=== PATIENT | female | born 2005 | race Caucasian/White ===

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

== ENCOUNTER 2024-02-24 13:09 | Emergency (ER) | payer OTHER, MEDICAID, SELFPAY ==
[2024-02-24 13:22] VITALS: BP 94/57; PULSE 81; RESP 17; TEMP 36.8; O2SAT 99
--- NOTE | 2024-02-24 13:57 | W.ED.PREGNAN ---
HPI - General: Chief complaint: OB/Uterine Contractions Stated complaint: cramps/vag bleeding (19wks preg) Time Seen by Provider: 02/24/24 13:52 Source: patient Mode of arrival: ambulatory Limitations: no limitations History of Present Illness: 18-year-old female who is currently 19 weeks states she has had some slight cramping in bleeding. 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 Associated symptoms: Reports abdominal pain; Deny headache(s), nausea or vomiting Review of Systems Const: Denies: fever(s), chills, body aches or change in appetite ENMT: Denies: throat pain or dental pain Card: Denies: chest pain Resp: Denies: dyspnea GI: Reports: abdominal pain; Denies: nausea, vomiting or diarrhea : Reports: vaginal bleeding Musc: Denies: neck pain or back pain Skin/Breast: Denies: rash Neuro: Denies: headache(s) PFSH ED PFSH: Medical History Migraine without aura Anxiety and depression No pertinent past medical history neghx: htn,dm,thyroid,dvt/pe PCP: [facility] Allergic rhinitis due to allergen Psychiatric care Surgical History History of tonsillectomy and adenoidectomy as a child History of placement of ear tubes as a child Family History Grandfather Diabetes Maternal Hypertension Maternal Denies family history of Colon cancer Ovarian cancer Heart disease Hypercholesteremia Breast cancer Uterine cancer Thyroid disease Stroke Physical Exam Const: COMMON NORMALS: no acute distress, patient oriented x3 and healthy appearing HENMT: COMMON NORMALS: normocephalic and atraumatic HEAD & SCALP: normocephalic and atraumatic Eye: COMMON NORMALS: conjunctivae normal CONJUNCTIVA: Yes conjunctivae normal Neck/C-Spine: COMMON NORMALS: full ROM and supple Chest: COMMONS NORMALS: normal inspection of the chest Resp: COMMON NORMALS: normal respiratory effort Cardio: COMMON NORMALS: regular rate RATE: regular rate GI: COMMON NORMALS: Normal to inspection, nondistended, normoactive bowel sounds present, Soft to palpation, non-tender and no masses PALPATION: Yes Soft to palpation : OTHER: Cervical os is closed no blood in vaginal vault Extremity: COMMON NORMALS: normal to inspection and full ROM Neuro: COMMON NORMALS: patient oriented x3, moves all extremities and no focal motor deficits Psych: COMMON NORMALS: mental status grossly normal, Normal thought process present and cooperative THOUGHT PROCESS: Normal thought process present Skin: COMMON NORMALS: no rashes or lesions noted and no wounds GENERAL SKIN EXAM: no rashes or lesions noted Course Vital Signs: Vital signs: Vital Signs Temperature 98.2 F 02/24/24 13:22 Pulse Rate 80 02/24/24 14:29 Respiratory Rate 16 02/24/24 14:29 Blood Pressure 100/81 02/24/24 14:29 Pulse Oximetry 99 02/24/24 14:29 Oxygen Delivery Me thod Room Air 02/24/24 14:29 MDM - OB/Uterine Contractions Medical Decision Making Patient presents here with threatened miscarriage she had no bleeding here bedside ultrasound showed fetus consistent with dates heart rate 152 she is Rh- we will give her RhoGAM she is to follow-up with OB return if worsening she understands agrees to plan. Medical Records I reviewed the patient's medical records. Lab Data I reviewed the patient's lab results. Laboratory Results Urine Color Straw (Yellow) 02/24/24 14:29 Urine Appearance Clear (CLEAR) 02/24/24 14:29 Urine pH 8 (5-7) H 02/24/24 14:29 Ur Specific [place] 1.010 (1.005-1.030) 02/24/24 14:29 Urine Protein Neg (Negative) 02/24/24 14:29 Urine Glucose (UA) Norm (Normal) 02/24/24 14:29 Urine Ketones Negative (Negative) 02/24/24 14:29 Urine Blood Neg (Negative) 02/24/24 14:29 Urine Nitrate Negative (Negative) 02/24/24 14:29 Urine Bilirubin Neg (Negative) 02/24/24 14:29 Prot Sulfosalicylic Acd Negative (Negative) 02/24/24 14:29 Urine Urobilinogen Norm mg/dL (Negative) 02/24/24 14:29 Ur Leukocyte Esterase Negative (Negative) 02/24/24 14:29 Blood Type O Negative 02/24/24 14:20 Rho(D) Type Rh negative 02/24/24 14:20 No radiology studies performed this visit Discharge Plan Discharge Patient Disposition: Home Clinical Impression: Threatened miscarriage Condition: Stable Prescriptions: No Action fluticasone propionate 50 mcg/actuation spray,suspension 2 spray intranasal BID PRN (Reason: allergy symptoms) Qty: 16 1RF Rx Instructions: administer into each nostril Alive Daily Support 180 mcg-25 mg- 25 mg tablet,chewable 1 tab PO DAILY albuterol sulfate [ProAir HFA] 90 mcg/actuation HFA aerosol inhaler 2 puff INHALATION Q4H PRN (Reason: Shortness Of Breath) sertraline 25 mg tablet 25 mg PO DAILY Discharge Orders: Discharge ED (Routine); Ordered 02/24/24 Ordered By: Etienne Tapia Referrals: Natalie Boudreaux DO [Primary Care Provider] - 4-7 days Discharge Diet: Advance as tolerated Discharge Activity: Resume usual activity Patient Instructions: Threatened Miscarriage (ED) Coding Level of Care Code ED Operating Systems Programmer for Hollie Magdaleno
[2024-02-24 14:29] VITALS: BP 100/81; PULSE 80; RESP 16; O2SAT 99
[2024-02-24 14:32] LABS: Add Urine Microscopic? NO; Charge for UA Resulting for Rev
[2024-02-24 14:47] LABS: Urine Color Straw (Yellow)
[2024-02-24 14:48] LABS: Bilirubin Urine Neg (Negative); Blood Urine Neg (Negative); Glucose Urine UA Norm (Normal); Ketones Urine Negative (Negative); Leukocyte Esterase Urine Negative (Negative); Nitrate Urine Negative (Negative); Protein Urine Neg (Negative); Sulfosalicylic Acid Urine Negative (Negative); Urine Appearance Clear (CLEAR); Urobilinogen Urine Norm (Negative); pH Urine 8 (5-7)
[2024-02-24 15:54] VITALS: BP 101/38; PULSE 78; RESP 18; TEMP 36.9; O2SAT 100
[2024-02-24 16:03] VITALS: BP 105/65; PULSE 73; RESP 18; O2SAT 100
[2024-02-24 16:32] VITALS: BP 87/63; PULSE 76; RESP 16; O2SAT 100
== END 2024-02-24 16:34 | disposition home or self-care (01) ==
PROVIDERS: Emergency Provider Emergency Medicine; PCP Family Medicine
DX: O20.0 Threatened abortion (principal); Z3A.19 19 weeks gestation of pregnancy
CPT/HCPCS: 81003; 85460; 86850; 86900; 90384; 99283

== ENCOUNTER → 2024-03-04 09:28 | Outpatient (BNVA) | payer OTHER, MEDICAID, SELFPAY | PROVIDERS: PCP Family Medicine; Visit Provider Nurse Practitioner Women's Health | DX: Z34.90 Encounter for supervision of normal pregnancy, unspecified, unspecified trimester (principal) | CPT/HCPCS: 80307; 84315; 87491; 87591 ==

== ENCOUNTER → 2024-03-11 14:23 | Outpatient (BNVA) | payer OTHER, MEDICAID, SELFPAY | PROVIDERS: PCP Family Medicine; Visit Provider Obstetrics & Gynecology | DX: Z36.9 Encounter for antenatal screening, unspecified (principal) | CPT/HCPCS: 76805 ==

== ENCOUNTER 2024-03-12 02:48 | Observation (INO) | payer OTHER, MEDICAID, SELFPAY ==
[2024-03-12] VITALS (7 sets, daily range): BP systolic 95–130; BP diastolic 39–82; PULSE 80–98; RESP 14–20; TEMP 36.5–36.7; O2SAT 98–100; BMI 22.8
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
[2024-03-12 03:16] LABS: Basophils % 0.2 %; Eosinophils # 0.3 10^3/uL (0.0-0.8); Eosinophils % 1.9 %; Hematocrit 35.5 % (36-47); Lymphocytes # 2.7 10^3/uL (1.5-6.5); Mean Corpuscular HGB Conc 33.5 g/dL (30-55); Mean Corpuscular Hemoglobin 30.7 pg (27-33); Mean Corpuscular Volume 91.5 fl (85-98); Mean Platelet Volume 8.7 fL (7.4-10.4); Monocytes # 1.1 10^3/uL (0.2-0.9); Monocytes % 8.3 %; Neutrophils # 9.24 10^3/uL (1.8-8.0); Neutrophils % 69.1 %; Nucleated Red Blood Cells % 0 %; Platelet Count 386 10^3/cmm (157-399); Red Blood Count 3.88 10^6/uL (3.85-5.65); Red Cell Distribution Width 12.2 % (12.1-15.1); White Blood Count 13.38 10^3/uL (4.5-13.0)
[2024-03-12 03:25] LABS: Amphetamines Screen Urine Negative (Negative); Barbiturates Screen Urine Negative (Negative); Benzodiazepines Screen Urine Negative (Negative); Cocaine Screen Urine Negative (Negative); Opiate Screen Urine Negative (Negative); PCP Screen Urine Negative (Negative); THC Screen Urine Negative (Negative)
[2024-03-12 03:34] LABS: Alanine Aminotransferase 21 U/L (0-33); Albumin Level 3.7 g/dL (3.5-5.2); Alkaline Phosphatase 72 U/L (35-105); Anion Gap 13.7 (5-19); Aspartate Amino Transferase 18 U/L (0-32); Blood Urea Nitrogen 6 mg/dL (6-20); Calcium 9.2 mg/dL (8.5-10.5); Carbon Dioxide 26 mmol/L (22-29); Chloride 105 mmol/L (98-107); Creatinine Clr Calc Pharmacy 144.6585; Globulin 3.1 g/dL (1.3-4.6); Glomerular Filtration Rate 158.9 mL/min (90-130); Glucose 97 mg/dL (65-115); Osmolality Calculated 290 mOsm/kg (285-295); Potassium 3.7 mmol/L (3.5-5.1); Sodium 141 mmol/L (136-145); Total Bilirubin 0.2 mg/dL (0.15-1.2); Total Protein 6.8 g/dL (6.6-8.7)
[2024-03-12 03:40] LABS: Acetaminophen < 5.0 ug/mL (10-30); Alcohol Level < 10 mg/dL (0-10); Salicylate < 0.3 mg/dL (3-10)
[2024-03-12] MEDS: calcium carbonate 500 mg Chew Tablet 1000 MG PO ×2 (08:12→12:03)
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
--- NOTE | 2024-03-12 09:00 | PC.NURSE ---
Called OB this morning to ask them to do heart tones. They stated they would come down to [place] to do them for the patient this morning.
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
[2024-03-12] MEDS: sertraline 50 mg Tablet PO (14:00)
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
== END 2024-03-12 17:35 | disposition home or self-care (01) ==
LOC: ER 03:17 → NP 05:08
PROVIDERS: Admitting Provider Psychiatry & Neurology Psychiatry; Emergency Provider Emergency Medicine; PCP Family Medicine; Visit Provider Psychiatry & Neurology Psychiatry
DX: O99.342 Other mental disorders complicating pregnancy, second trimester (principal); Z3A.21 21 weeks gestation of pregnancy; R45.851 Suicidal ideations; F33.2 Major depressive disorder, recurrent severe without psychotic features
CPT/HCPCS: 36415; 80053; 80306; 80307; 85025; 97165; 99285; G0378

== ENCOUNTER → 2024-03-31 08:01 | Outpatient (BNVA) | payer OTHER, MEDICAID, SELFPAY | PROVIDERS: PCP Family Medicine; Visit Provider Nurse Practitioner Women's Health | DX: Z34.90 Encounter for supervision of normal pregnancy, unspecified, unspecified trimester (principal); N90.89 Other specified noninflammatory disorders of vulva and perineum | CPT/HCPCS: 84315; 87529 ==

== ENCOUNTER → 2024-04-21 08:09 | Outpatient (BNVA) | payer OTHER, MEDICAID, SELFPAY | PROVIDERS: PCP Family Medicine; Visit Provider Obstetrics & Gynecology | DX: Z34.90 Encounter for supervision of normal pregnancy, unspecified, unspecified trimester (principal); Z3A.24 24 weeks gestation of pregnancy | CPT/HCPCS: 82950; 84315 ==

== ENCOUNTER → 2024-04-22 10:58 | Outpatient (BNVA) | payer OTHER, MEDICAID, SELFPAY | PROVIDERS: PCP Family Medicine; Visit Provider Nurse Practitioner Family | DX: D48.5 Neoplasm of uncertain behavior of skin (principal); L81.4 Other melanin hyperpigmentation; D22.5 Melanocytic nevi of trunk | CPT/HCPCS: 11102; 99203 ==

== ENCOUNTER 2024-04-23 05:30 | Outpatient (CLI) | payer OTHER, MEDICAID, SELFPAY ==
[2024-04-23 05:57] VITALS: BP 111/60; PULSE 78
[2024-04-23 06:00] VITALS: BMI 23.4
[2024-04-23 06:12] VITALS: BP 107/59; PULSE 83
[2024-04-23 06:27] VITALS: BP 112/56; PULSE 82
[2024-04-23 06:42] VITALS: BP 109/58; PULSE 86
[2024-04-23 06:57] VITALS: BP 110/59; PULSE 83
== END 2024-04-23 07:12 | disposition home or self-care (01) ==
LOC: OPOB 05:42 → OBGYN 05:43
PROVIDERS: PCP Family Medicine; Visit Provider Obstetrics & Gynecology
DX: O26.899 Other specified pregnancy related conditions, unspecified trimester (principal); Z3A.00 Weeks of gestation of pregnancy not specified; Z91.81 History of falling
CPT/HCPCS: 99211

== ENCOUNTER → 2024-05-12 08:10 | Outpatient (BNVA) | payer OTHER, MEDICAID, SELFPAY | PROVIDERS: PCP Family Medicine; Visit Provider Obstetrics & Gynecology | DX: Z34.90 Encounter for supervision of normal pregnancy, unspecified, unspecified trimester (principal) | CPT/HCPCS: 84315; 86850 ==

== ENCOUNTER 2024-05-13 23:25 | Outpatient (CLI) | payer OTHER, MEDICAID, SELFPAY ==
[2024-05-13 23:25] VITALS: BMI 23.6
[2024-05-14 00:04] VITALS: BP 118/56; PULSE 81; TEMP 36.8
[2024-05-14 00:14] VITALS: BP 129/60; PULSE 88
[2024-05-14 00:35] VITALS: BP 129/60; PULSE 88; RESP 16; TEMP 36.8
== END 2024-05-14 00:36 | disposition home or self-care (01) ==
LOC: OPOB 23:29 → OBGYN 23:29
PROVIDERS: PCP Family Medicine; Visit Provider Obstetrics & Gynecology
DX: O36.8190 Decreased fetal movements, unspecified trimester, not applicable or unspecified (principal); Z3A.00 Weeks of gestation of pregnancy not specified
CPT/HCPCS: 59025; 99211

== ENCOUNTER 2024-05-20 19:09 | Outpatient (CLI) | payer OTHER, MEDICAID, SELFPAY ==
[2024-05-20 19:24] VITALS: BP 124/66; PULSE 86
[2024-05-20 19:27] VITALS: TEMP 36.6; TEMP 36.7; BMI 24.7
[2024-05-20 19:41] VITALS: BP 114/56; PULSE 83
== END 2024-05-20 20:07 | disposition home or self-care (01) ==
LOC: OPOB 19:13 → OBGYN 19:14
PROVIDERS: PCP Family Medicine; Visit Provider Obstetrics & Gynecology
DX: O26.899 Other specified pregnancy related conditions, unspecified trimester (principal); Z3A.00 Weeks of gestation of pregnancy not specified
CPT/HCPCS: 59025; 99211

== ENCOUNTER → 2024-05-26 08:46 | Outpatient (BNVA) | payer OTHER, MEDICAID, SELFPAY | PROVIDERS: PCP Family Medicine; Visit Provider Obstetrics & Gynecology | DX: Z34.90 Encounter for supervision of normal pregnancy, unspecified, unspecified trimester (principal); R21 Rash and other nonspecific skin eruption; L29.9 Pruritus, unspecified | CPT/HCPCS: 80053; 84315; 84550 ==

== ENCOUNTER 2024-06-04 00:47 | Outpatient (CLI) | payer OTHER, MEDICAID, SELFPAY ==
[2024-06-04 00:47] VITALS: BMI 25.0
[2024-06-04 01:02] VITALS: BP 125/70; PULSE 71
[2024-06-04 01:17] VITALS: BP 113/58; PULSE 67
[2024-06-04 01:32] VITALS: BP 103/71; PULSE 86
[2024-06-04 01:48] VITALS: RESP 16
[2024-06-04 01:55] VITALS: BP 103/71; PULSE 86; RESP 16
== END 2024-06-04 01:59 | disposition home or self-care (01) ==
LOC: OPOB 00:52 → OBGYN 00:54
PROVIDERS: PCP Family Medicine; Visit Provider Obstetrics & Gynecology
DX: O26.899 Other specified pregnancy related conditions, unspecified trimester (principal); Z3A.00 Weeks of gestation of pregnancy not specified; K92.1 Melena; R10.10 Upper abdominal pain, unspecified
CPT/HCPCS: 59025; 84315; 99211

== ENCOUNTER 2024-06-07 23:42 | Outpatient (CLI) | payer OTHER, MEDICAID, SELFPAY ==
[2024-06-07 23:47] VITALS: BP 133/64; PULSE 73
[2024-06-07 23:56] VITALS: RESP 18; TEMP 35.7; BMI 24.7
[2024-06-08] VITALS (9 sets, daily range): BP systolic 117–146; BP diastolic 60–72; PULSE 71–83; RESP 18
[2024-06-08 00:32] LABS: Bilirubin Urine Negative (Negative); Blood Urine Negative (Negative); Glucose Urine UA Negative (Normal); Ketones Urine Negative (Negative); Leukocyte Esterase Urine 1+ (Negative); Nitrate Urine Negative (Negative); Protein Urine Negative (Negative); Urine Appearance Clear (CLEAR); Urine Color Yellow (Yellow); Urobilinogen Urine 0.2 mg/dL (Negative); pH Urine 6.5 (5-7)
[2024-06-08 00:37] LABS: Bacteria Urine 1+ /hpf; Hyaline Casts Urine 1.21 /lpf; RBC Urine 0-2 /hpf (0-2)
[2024-06-08] MEDS: ceFAZolin 2,000 mg SDV 2000 MG IVP (01:28)
[2024-06-08] MEDS: lactated ringers 1,000 ML 999 ML IV (01:28)
== END 2024-06-08 02:10 | disposition home or self-care (01) ==
LOC: OPOB 23:43 → OBGYN 23:43
PROVIDERS: PCP Family Medicine; Visit Provider Obstetrics & Gynecology
DX: O26.899 Other specified pregnancy related conditions, unspecified trimester (principal); Z3A.00 Weeks of gestation of pregnancy not specified; R10.9 Unspecified abdominal pain; R42 Dizziness and giddiness
CPT/HCPCS: 59025; 81001; 99211

== ENCOUNTER → 2024-06-10 10:49 | Outpatient (BNVA) | payer OTHER, MEDICAID, SELFPAY | PROVIDERS: PCP Family Medicine; Visit Provider Obstetrics & Gynecology | DX: Z36.9 Encounter for antenatal screening, unspecified (principal) | CPT/HCPCS: 76816 ==

== ENCOUNTER 2024-06-12 13:50 | Outpatient (CLI) | payer OTHER, SELFPAY ==
[2024-06-12 14:04] VITALS: BP 121/58; PULSE 76
[2024-06-12 14:05] VITALS: BMI 25.4
[2024-06-12 14:25] VITALS: BP 117/60; PULSE 76
[2024-06-12 14:44] VITALS: BP 119/70; PULSE 76
[2024-06-12 15:10] VITALS: BP 119/70; PULSE 76; RESP 16
== END 2024-06-12 15:00 | disposition home or self-care (01) ==
LOC: OPOB 13:54 → OBGYN 14:00
PROVIDERS: PCP Family Medicine; Visit Provider Obstetrics & Gynecology
DX: O26.899 Other specified pregnancy related conditions, unspecified trimester (principal); Z3A.00 Weeks of gestation of pregnancy not specified; R10.9 Unspecified abdominal pain
CPT/HCPCS: 59025; 99211

== ENCOUNTER 2024-06-12 21:32 | Outpatient (CLI) | payer OTHER, MEDICAID, SELFPAY ==
[2024-06-12 21:25] VITALS: BMI 25.2
[2024-06-12 21:38] VITALS: BP 115/57; PULSE 73; TEMP 36.8
[2024-06-12 21:58] VITALS: BP 116/64; PULSE 77
[2024-06-12 21:59] LABS: Actim Prom Negative
== END 2024-06-12 22:21 | disposition home or self-care (01) ==
LOC: OPOB 21:33 → OBGYN 21:34
PROVIDERS: PCP Family Medicine; Visit Provider Obstetrics & Gynecology
DX: Z46.89 Encounter for fitting and adjustment of other specified devices (principal); Z3A.00 Weeks of gestation of pregnancy not specified; R10.9 Unspecified abdominal pain
CPT/HCPCS: 59025; 84112; 99211

== ENCOUNTER → 2024-06-18 08:29 | Outpatient (BNVA) | payer OTHER, SELFPAY | PROVIDERS: PCP Family Medicine; Visit Provider Nurse Practitioner Women's Health | DX: Z34.90 Encounter for supervision of normal pregnancy, unspecified, unspecified trimester (principal) | CPT/HCPCS: 84315; 85025 ==

== ENCOUNTER 2024-06-22 20:37 | Outpatient (CLI) | payer OTHER, MEDICAID, SELFPAY ==
[2024-06-22 20:36] VITALS: BMI 25.2
[2024-06-22 20:49] VITALS: BP 137/72; PULSE 73
[2024-06-22 21:15] LABS: Nitrazine Paper, PH Negative
[2024-06-22 21:19] VITALS: BP 126/74; PULSE 72
[2024-06-22 21:21] VITALS: BP 142/67; PULSE 68
[2024-06-22 21:24] LABS: Bilirubin Urine Negative (Negative); Blood Urine Negative (Negative); Glucose Urine UA Negative (Normal); Ketones Urine Negative (Negative); Leukocyte Esterase Urine Trace (Negative); Nitrate Urine Negative (Negative); Protein Urine Negative (Negative); Specific Gravity, Urine 1.006 (1.005-1.030); Urine Appearance Clear (CLEAR); Urine Color Yellow (Yellow)
[2024-06-22 21:29] LABS: Bacteria Urine None Seen /hpf; Hyaline Casts Urine 0-4 /lpf; RBC Urine 0-2 /hpf (0-2); WBC Urine 0-5 /hpf (0-5)
[2024-06-22 21:35] VITALS: BP 128/78; PULSE 69; RESP 18; TEMP 36.6
[2024-06-22 21:50] VITALS: BP 126/76; PULSE 70
--- NOTE | 2024-06-22 22:00 | P.TNLD_ITS ---
OB L&D Triage Visit Information: Date of evaluation: 06/22/24 Comments/Additional reason(s) for visit: 18-year-old female G1, P0 at 36 weeks [facility] with SARY 07/20/2024, patient seen on labor and delivery with complaints of abdominal pain and leakage of fluid. Patient denies vaginal bleeding. She admits to good movement. EFM?category 1 with irregular contractions. Cervix?closed/50%/-3 Nitrazine?negative UA?unremarkable ABD?gravid, soft, no tenderness to palpation no guarding or rigidity. Ext?negative for edema, negative Homans' sign. Discussed discomforts of with movement and irregular contractions. Advised patient to return to labor and delivery if pain increases or vaginal bleeding are a good should fluid. Patient states she has visit tomorrow with Dr. Wilder, encourage patient to keep that scheduled appointment. We discussed labor, hydration, and encourage patient to discontinue vaping. Evaluation: Baseline heart rate: 140 monitor accelerations: Present 15x15 monitor decelerations: None Cervical dilation (cm): 0 Cervical effacement (%): 50 station: -3 Laboratory results: Laboratory Tests 06/22/24 06/22/24 21:06 21:15 Urine Color Yellow Urine Appearance Clear Urine pH 7.0 Ur Specific Gravit y 1.006 Urine Protein Negative Urine Glucose (UA) Negative Urine Ketones Negative Urine Blood Negative Urine Nitrate Negative Urine Bilirubin Negative Urine Urobilinogen 1.0 Ur Leukocyte Danni ase Trace A Urine RBC 0-2 Urine WBC 0-5 Ur Squamous Epith Cells 6-10 Amorphous Sediment Not Reportable Urine Bacteria None seen Hyaline Casts 0-4 H Fluid pH (paper) Negative Vital signs: Vital Signs - 24 hr 06/22/24 20:49 06/22/24 21:19 06/22/24 21:19 Pulse Rate 73 72 Blood Pressure 137/72 126/74 06/22/24 21:21 06/22/24 21:21 06/22/24 21:35 Pulse Rate 68 Blood Pressure 142/67 128/78 06/22/24 21:35 06/22/24 21:50 06/22/24 21:50 Pulse Rate 69 70 Blood Pressure 126/76 Care SARY Calculator Estimated Delivery Date Method Current WG Current Estimate 07/19/24 LMP (Certain) 36w 1d Final Diagnosis Final Diagnosis (1) 36 weeks gestation of : Plan: Increase hydration Keep appointment tomorrow with Dr. Wilder Return to labor and delivery if vaginal bleeding, increased pelvic pain or spontaneous leakage of fluid occurs. Status: Acute Code(s): Z3A.36 - 36 weeks gestation of (2) Irregular contractions: Status: Acute Code(s): O47.9 - False labor, unspecified (3) Vapes nicotine containing substance: Status: Acute Code(s): Z72.0 - Tobacco use (4) Rh negative status during : Status: Acute Code(s): O26.899 - Other specified related conditions, unspecified trimester; Z67.91 - Unspecified blood type, Rh negative (5) MDD (major depressive disorder), recurrent severe, without psychosis: Status: Acute Code(s): F33.2 - Major depressive disorder, recurrent severe without psychotic features Coding Level of Care Code Acute Code for Chg Fwd Diagnoses 36 weeks gestation of Z3A.36 Irregular contractions O47.9 Vapes nicotine containing substance Z72.0 Rh negative status during O26.899; Z67.91 MDD (major depressive disorder), recurrent severe, without psychosis F33.2
== END 2024-06-22 22:11 | disposition home or self-care (01) ==
LOC: OPOB 20:38 → OBGYN 20:41
PROVIDERS: PCP Family Medicine; Visit Provider Obstetrics & Gynecology
DX: O26.893 Other specified pregnancy related conditions, third trimester (principal); O99.333 Smoking (tobacco) complicating pregnancy, third trimester; Z3A.36 36 weeks gestation of pregnancy; Z67.91 Unspecified blood type, Rh negative; F33.2 Major depressive disorder, recurrent severe without psychotic features
CPT/HCPCS: 59025; 81001; 83986; 99211

== ENCOUNTER → 2024-07-01 08:15 | Outpatient (BNVA) | payer OTHER, MEDICAID, SELFPAY | PROVIDERS: PCP Family Medicine; Visit Provider Obstetrics & Gynecology | DX: Z34.90 Encounter for supervision of normal pregnancy, unspecified, unspecified trimester (principal); Z3A.36 36 weeks gestation of pregnancy | CPT/HCPCS: 84315; 87081 ==

== ENCOUNTER → 2024-07-07 16:07 | Outpatient (BNVA) | payer OTHER, MEDICAID, SELFPAY | PROVIDERS: PCP Family Medicine; Visit Provider Obstetrics & Gynecology | DX: Z34.90 Encounter for supervision of normal pregnancy, unspecified, unspecified trimester (principal) | CPT/HCPCS: 84315 ==

== ENCOUNTER 2024-07-10 05:18 | Outpatient (CLI) | payer OTHER, MEDICAID, SELFPAY ==
[2024-07-10 05:21] VITALS: BMI 25.7
[2024-07-10 05:28] VITALS: BP 124/66; PULSE 70
[2024-07-10 05:55] VITALS: BP 131/66; PULSE 67
--- NOTE | 2024-07-10 05:55 | USR_ITS ---
PROCEDURE INFORMATION: Exam: US Biophysical Profile Without Non-Stress Test Exam date and time: 07/10/2024 6:09 AM Age: 19 years old Clinical indication: status abnormalities: ; movements, decreased; Fetus 1; Third trimester (>=28 weeks 0 days); ; Additional info: Decreased movement TECHNIQUE: Imaging protocol: US biophysical profile without non-stress testing. COMPARISON: [place] [id number] 06/10/2024 10:55 AM FINDINGS: Gestation: Single live intrauterine gestation. heart rate: 147 bpm Placenta: Anterior. Amniotic fluid index: DAT is 8.24 cm. BIOPHYSICAL PROFILE: breathing (BPP): 2 /2 gross body movement (BPP): 2 /2 tone (BPP): 2 /2 Amniotic fluid (BPP): 2 /2 Biophysical profile score (BPP): 8 /8 MATERNAL ANATOMY: Cervix: Cervical length measures 4.5 cm. US/US OB BPP wo NST 12061 IMPRESSION: Biophysical profile score 8/8.
[2024-07-10 06:43] VITALS: BP 128/69; PULSE 67
[2024-07-10 06:48] VITALS: BP 123/68; PULSE 66
== END 2024-07-10 06:51 | disposition home or self-care (01) ==
LOC: OPOB 05:19 → OBGYN 05:20
PROVIDERS: PCP Family Medicine; Visit Provider Obstetrics & Gynecology
DX: O36.8190 Decreased fetal movements, unspecified trimester, not applicable or unspecified (principal); Z3A.00 Weeks of gestation of pregnancy not specified
CPT/HCPCS: 59025; 76819; 99211

== ENCOUNTER → 2024-07-14 08:15 | Outpatient (BNVA) | payer OTHER, SELFPAY | PROVIDERS: PCP Family Medicine; Visit Provider Obstetrics & Gynecology | DX: Z53.9 Procedure and treatment not carried out, unspecified reason (principal) | CPT/HCPCS: 84315 ==

== ENCOUNTER → 2024-07-15 09:25 | Outpatient (BNVA) | payer OTHER, SELFPAY | PROVIDERS: PCP Family Medicine; Visit Provider Nurse Practitioner Family | DX: J02.9 Acute pharyngitis, unspecified (principal) | CPT/HCPCS: 87880 ==

== ENCOUNTER 2024-07-17 01:13 | Outpatient (CLI) | payer OTHER, SELFPAY ==
[2024-07-17 01:13] VITALS: BMI 24.3
[2024-07-17 01:30] VITALS: BP 143/73; PULSE 74
[2024-07-17 01:45] VITALS: BP 131/69; PULSE 69
[2024-07-17 02:01] VITALS: BP 140/81; PULSE 65
[2024-07-17 02:15] VITALS: BP 131/72; PULSE 86
[2024-07-17 02:30] VITALS: BP 132/70; PULSE 78
[2024-07-17 02:45] VITALS: BP 132/70; PULSE 78; RESP 14
== END 2024-07-17 02:45 | disposition home or self-care (01) ==
LOC: OPOB 01:17 → OBGYN 01:18
PROVIDERS: PCP Family Medicine; Visit Provider Obstetrics & Gynecology
DX: O26.899 Other specified pregnancy related conditions, unspecified trimester (principal); Z3A.00 Weeks of gestation of pregnancy not specified; R10.9 Unspecified abdominal pain; N89.8 Other specified noninflammatory disorders of vagina
CPT/HCPCS: 59025; 83986; 99211

== ENCOUNTER 2024-07-18 21:28 | Inpatient (IN) | payer OTHER, SELFPAY ==
[2024-07-18] VITALS (15 sets, daily range): BP systolic 119–177; BP diastolic 62–94; PULSE 58–90; RESP 18; TEMP 36.7; BMI 24.1
[2024-07-18] MEDS: lactated ringers 1,000 ML 999 ML IV (21:32)
[2024-07-18 21:57] LABS: Basophils % 0.2 %; Eosinophils # 0.1 10^3/uL (0.0-0.8); Eosinophils % 0.5 %; Hematocrit 40.9 % (36-47); Lymphocytes # 2.3 10^3/uL (1.5-6.5); Lymphocytes % 17.6 %; Mean Corpuscular Hemoglobin 30.2 pg (27-33); Mean Corpuscular Volume 86.3 fl (85-98); Mean Platelet Volume 10.9 fL (7.4-10.4); Monocytes # 0.7 10^3/uL (0.2-0.9); Monocytes % 5.1 %; Neutrophils # 9.81 10^3/uL (1.8-8.0); Neutrophils % 76.2 %; Nucleated Red Blood Cells % 0 %; Platelet Count 332 10^3/cmm (157-399); Red Blood Count 4.74 10^6/uL (3.85-5.65); Red Cell Distribution Width 12.1 % (12.1-15.1); White Blood Count 12.87 10^3/uL (4.5-13.0)
--- NOTE | 2024-07-18 22:20 | P.HP_ITS ---
Providers/Chief Complaint 2 Admitting Physician: Alex Wilder MD Primary TERMITE CONTROL TECHNICIAN: Alex Wilder MD Primary Care Provider: Natalie Boudreaux DO Chief Complaint: contractions HPI TERMITE CONTROL TECHNICIAN History of Present Illness Maya Gonzalez is a 19 year old female 19 y.o. G1 EDC July 19, 2024 At 39 w 6 d No complications Presents to L&D c/o painful uterine contractions No bleeding or fluid leakage + active movements Present Details : 1 Para: 0 Labs Rubella: Non-Immune RPR: Negative GBS: Negative Medications/Allergies Home Medications Medication Instructions Recorded Confirmed Last Taken Type albuterol sulfate 90 mcg/actuation 2 puff inhalation Q4H PRN 02/07/22 07/17/24 1 Week Ago History aerosol inhaler (ProAir HFA) Shortness Of Breath ~07/10/24 mv-mn no.97-folic 180 mcg-dha 25 1 tab PO DAILY 07/16/23 07/17/24 2 Days Ago History mg-herb no.293 25 mg chewable ~07/15/24 tablet (Alive Daily Support ) sertraline 25 mg tablet 25 mg PO DAILY #30 tabs 04/21/24 07/17/24 2 Days Ago Rx ~07/15/24 famotidine 20 mg tablet (Pepcid) 20 mg PO BID #60 tabs 06/18/24 07/17/24 2 Days Ago Rx ~07/15/24 Allergies Allergy/AdvReac Type Severity Reaction Status Date / Time Sulfa (Sulfonamide Allergy ALGY-Hives Verified 07/17/24 01:46 Antibiotics) PFSH TERMITE CONTROL TECHNICIAN 2 PFSH: Medical History Vapes nicotine containing substance Migraine without aura Anxiety and depression No pertinent past medical history neghx: htn,dm,thyroid,dvt/pe PCP: [facility] Allergic rhinitis due to allergen Psychiatric care Surgical History History of tonsillectomy and adenoidectomy as a child History of placement of ear tubes as a child Family History Grandfather Diabetes Maternal Hypertension Maternal Denies family history of Colon cancer Ovarian cancer Heart disease Hypercholesteremia Breast cancer Uterine cancer Thyroid disease Stroke Social History Smoking and tobacco/nicotine status: never used tobacco/nicotine History History History 2 1 Term 0 Miscarriages/Ectopic Living Children Care SARY Calculator 2 Estimated Delivery Date Method Current WG Current Estimate 07/19/24 LMP (Certain) 40w 0d Specific Issues/Plans RH NEGATIVE STATUS OF --RHOGAM GIVEN ON 06/04/24 MDD (MAJOR DEPRESSIVE DISORDER)-TAKES ZOLOFT DAILY FOR THIS PURITIS OF ANKLES- CHLOESTASIS PANEL DONE --NORMAL Vitals/I&O/Wt Last Vital Signs Temp 98.1 F 07/19/24 04:00 Pulse 80 07/19/24 04:00 Resp 18 07/18/24 19:15 BP 131/79 07/19/24 04:00 O2 Del Method Room Air 07/18/24 23:02 07/18/24 07/19/24 07/19/24 22:59 06:59 14:59 Intake Total 500 / 500 Balance 500 / 500 Weight last 48 hrs Weight 128 lb Physical Exam 2 Narrative: Weight 140 lbs; 5?1? VS normal General: awake, alert, appropriate Lungs: clear Cor: RRR FH 36 cm, cephalic Cervix: 4-5 cm / 75% / -2 Ext: normal External monitor: regular UCs heart tracing good variability, + accelerations Data 07/18/24 21:44 Results Labs OB ([facility]): 2 Obstetrics US 06/10/24 Obstetrics US/Biophysical Profile Blood Type O Negative 07/19/24 Antibody Screen Positive 07/19/24 Hct 40.9 % (36-47) 07/18/24 Hgb 14.30 g/dL (12.4-14.8) 07/18/24 Rho(D) Type Rh negative 07/19/24 Plt Count 332 10^3/cmm (157-399) 07/18/24 TSH 0.66 uIU/mL (0.27-4.20) 06/29/22 Free T4 1.22 ng/dL (0.93-1.60) 02/07/22 C.trachomatis RNA (TMA) Not detected (NOT DETECTED) N.gonorrhoeae RNA (TMA) Not detected (NOT DETECTED) T. vaginalis Amp RNA Not detected (NOT DETECTED) 03/04/24 Chlamydia/GC Comment See note 03/04/24 Gest Glucose Tolerance 101 mg/dL (70-139) 04/21/24 Uric Acid 3.9 mg/dL (2.4-5.7) 05/26/24 Ser , Semi-Qnt 3048.00 mIU/mL 11/15/23 HCG, Qual Positive (Negative) H 11/10/23 Urine Opiates Screen Negative ng/mL (Negative) 03/12/24 Ur Barbiturates Screen Negative ng/mL (Negative) 03/12/24 Ur Phencyclidine Scrn Negative ng/mL (Negative) 03/12/24 Ur Amphetamines Screen Negative ng/mL (Negative) 03/12/24 U Benzodiazepines Scrn Negative ng/mL (Negative) 03/12/24 Urine Cocaine Screen Negative ng/mL (Negative) 03/12/24 U Marijuana (THC) Screen Negative ng/mL (Negative) 03/12/24 Micro Urine Specimen 07/02/22 Prolactin 5.07 ng/mL (4.8-23.3) 06/29/22 A&P Assessment and plan (1) Active labor at term: 39 w 6 d Active labor Fetus reassuring Admit to L&D Attestations 2 Medical Necessity Statement*: patient at 39 w 6 d, presented with active labor Coding Level of Care Code Acute Code for Chg Fwd Diagnoses Active labor at term Time Spent (min) 30
[2024-07-18] MEDS: oxytocin 30 UNIT/500 ML BAG 600 UNIT IV (23:05)
--- NOTE | 2024-07-18 23:20 | PM.DELIVERY ---
Delivery Note: Date of delivery: July 18, 2024 Pre-delivery diagnoses: 39 w 6 d active labor Post-delivery diagnoses: 39 w 6 d active labor vaginal delivery second-degree perineal laceration, repaired Procedure: vaginal delivery repair of second-degree perineal laceration Op report anesthesia: None Delivering Physician: Alex Wilder MD Estimated blood loss (mL): 300 Findings: , vigorous Cord gases obtained Normal placenta and cord No episiotomy Lidocaine 2% 5 cc given at perineum Second-degree perineal laceration repaired EBL: 300 cc No complications Pre-Delivery Course: normal labor course fetus reassuring throughout Delivery: vaginal Post-Delivery Status: good History History History 1 Term 0 Miscarriages/Ectopic Living Children A&P Assessment and plan (1) Vaginal delivery: Coding Level of Care Code Acute Code for Chg Fwd Diagnoses Vaginal delivery O80 Time Spent (min) 60
[2024-07-19] VITALS (8 sets, daily range): BP systolic 120–136; BP diastolic 63–81; PULSE 64–80; RESP 16; TEMP 36.6–36.8; O2SAT 98
--- NOTE | 2024-07-19 06:59 | PC.NURSE ---
Patient had labs at [facility] on 12/31/2023 Results for the following labs visualized on patient's portal by this RN. RPR - Non-Reactive HepB - Negative HepC - Negative Rubella - 9.3, Non-Immune
[2024-07-19] MEDS: ibuprofen 800 mg tablet PO ×3 (09:55→23:12)
[2024-07-19] MEDS: PRENATAL VIT NO.130/IRON/FOLIC 1 EACH TABLET PO (09:55)
[2024-07-19] MEDS: docusate sodium 100 mg Capsule PO (09:55)
[2024-07-19 11:42] LABS: Hematocrit 33.2 % (36-47); Mean Corpuscular Hemoglobin 30.1 pg (27-33); Mean Corpuscular Volume 88.5 fl (85-98); Mean Platelet Volume 10.5 fL (7.4-10.4); Platelet Count 275 10^3/cmm (157-399); Red Blood Count 3.75 10^6/uL (3.85-5.65); Red Cell Distribution Width 12.1 % (12.1-15.1)
[2024-07-19 12:16] LABS: HIV 1 & 2 Antibody Non-Reactive (Non-Reactiv); HIV 1 & 2 Antigen Non-Reactive (Non-Reactiv)
--- NOTE | 2024-07-19 15:10 | P.PN_ITS ---
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 [employer] Subjective 2 Subjective: Interval history: no c/o no headaches, dizziness, nausea, abdominal pain, bleeding normal lochia mild perineal pain, relieved with pain meds eating, voiding, ambulating well Labor: Station: +2 Amniotic Membrane Status: Intact Monitor Mode: Palpation Contraction Pattern: Regular Status: Category II Vitals/I&O/Wt Last Vital Signs Temp 97.6 F 07/20/24 12:58 Pulse 60 07/20/24 12:58 Resp 15 07/20/24 12:58 BP 140/78 07/20/24 12:58 Pulse Ox 98 07/19/24 10:30 O2 Del Method Room Air 07/20/24 11:00 07/19/24 07/20/24 07/20/24 22:59 06:59 14:59 Intake Total 0 / 0 Balance 0 / 0 Weight last 48 hrs Weight 128 lb Physical Exam 2 Narrative: afebrile, VS normal comfortable, awake, alert Abd: soft, nontender. fundus firm Ext: no edema; nontender Data 07/19/24 11:35 A&P Assessment and plan (1) Vaginal delivery: PPD #1 doing well normal course continue care Attestations 2 Medical Necessity Statement*: patient s/p vaginal delivery Coding Level of Care Code Acute Code for Chg Fwd Diagnoses Vaginal delivery O80 Time Spent (min) 20
[2024-07-20 04:56] VITALS: BP 105/63; PULSE 65; RESP 16; TEMP 36.9
[2024-07-20] MEDS: ibuprofen 800 mg tablet PO (08:38)
[2024-07-20] MEDS: docusate sodium 100 mg Capsule PO (08:38)
[2024-07-20] MEDS: PRENATAL VIT NO.130/IRON/FOLIC 1 EACH TABLET PO (08:38)
[2024-07-20 11:00] VITALS: BP 125/78; PULSE 75
[2024-07-20] MEDS: benzocaine-menthol 78 gm Canister 1 SPRAY TOPICAL (12:15)
[2024-07-20] MEDS: lanolin oint 7 gm 1 APPLIC TOPICAL (12:15)
[2024-07-20 12:58] VITALS: BP 140/78; PULSE 60; RESP 15; TEMP 36.4
--- NOTE | 2024-07-20 13:31 | P.PN_ITS ---
SALES APPLICATIONS ENGINEER Subjective 2 Subjective: Interval history: no c/o no bleeding, pain eating, voiding, ambulating well caring for without any problems Labor: Station: +2 Amniotic Membrane Status: Intact Monitor Mode: Palpation Contraction Pattern: Regular Status: Category II Vitals/I&O/Wt Last Vital Signs Temp 97.6 F 07/20/24 12:58 Pulse 60 07/20/24 12:58 Resp 15 07/20/24 12:58 BP 140/78 07/20/24 12:58 Pulse Ox 98 07/19/24 10:30 O2 Del Method Room Air 07/20/24 11:00 07/19/24 07/20/24 07/20/24 22:59 06:59 14:59 Intake Total 0 / 0 Balance 0 / 0 Weight last 48 hrs Weight 128 lb Physical Exam 2 Narrative: afebrile, VS normal comfortable, awake, alert Abd: soft, nontender. fundus firm Ext: no edema; nontender Data 07/19/24 11:35 A&P Assessment and plan (1) Vaginal delivery: PPD #2 doing well discharge to home today instructions and precautions given call/return if fever, chills, headache, blurry vision, nausea, vomiting, abdominal pain; vaginal bleeding or discharge; shortness of breath, chest pain, leg pains or swelling; inability to void, perineal pain or swelling; feelings of depression or mood changes; thoughts of suicide or harming others; inability to care for baby. f/u in 2 weeks or PRN Attestations 2 Medical Necessity Statement*: patient s/p vaginal delivery, plan to discharge to home today Coding Level of Care Code Acute Code for Chg Fwd Diagnoses Vaginal delivery O80 Time Spent (min) 20
--- NOTE | 2024-07-20 13:33 | PM.OBGYDC ---
Discharge Providers POACHER OPERATOR Date of Admission: 07/18/24 21:28 Date of Discharge: 07/20/24 Attending Provider at Admission: Alex Wilder MD Attending Provider at Discharge: Alex Wilder MD Consults: none Primary POACHER OPERATOR: Alex Wilder MD Primary Care Provider: Natalie Boudreaux DO Diagnoses at Discharge Discharge Diagnosis (1) Vaginal delivery: Details from hospital stay: 19 y.o. G1 at 39 w 6 d no complications admitted with active labor cervix was at 5 cm fetus reassuring throughout patient progressed to complete relatively quickly; patient had no epidural analgesia had vaginal delivery with repair of second-degree perineal laceration without any complications patient had an uneventful course and was discharged to home on the second day Status: Acute Reason for Visit Reason for Visit: contractions Brief History: 19 y.o. G1 at 39 w 6 d no complications admitted with active labor cervix was at 5 cm Hospital Course Hospital Course 19 y.o. G1 at 39 w 6 d no complications admitted with active labor cervix was at 5 cm fetus reassuring throughout patient progressed to complete relatively quickly; patient had no epidural analgesia had vaginal delivery with repair of second-degree perineal laceration without any complications patient had an uneventful course and was discharged to home on the second day Information Peripartum Data: Infant Delivery Method: Vaginal Laceration description: Perineal - 2nd Degree Episiotomy description: None complications: none Physical Exam Narrative: afebrile, VS normal comfortable, awake, alert Abd: soft, nontender. fundus firm Ext: no edema; nontender History History History 1 Term 0 Miscarriages/Ectopic Living Children Discharge Data Studies Completed and Pending Pending at discharge Category Date Time Status Antibody Identification Routine Lab 07/19/24 00:45 Results Complete Crossmatch Routine Lab 07/19/24 00:45 Results Complete Crossmatch Routine Lab 07/20/24 14:30 Ordered Maternal Hemorrhage Scrn Routine Lab 07/20/24 14:30 Ordered Rho D Immune Globulin Routine Lab 07/19/24 00:45 Results Rho D Immune Globulin Routine Lab 07/20/24 14:30 Ordered Type and Screen Routine Lab 07/18/24 00:45 Results Laboratory Results WBC 14.90 10^3/uL (4.5-13.0) H 07/19/24 11:35 RBC 3.75 10^6/uL (3.85-5.65) L 07/19/24 11:35 Hgb 11.30 g/dL (12.4-14.8) L 07/19/24 11:35 Hct 33.2 % (36-47) L 07/19/24 11:35 MCV 88.5 fl (85-98) 07/19/24 11:35 MCH 30.1 pg (27-33) 07/19/24 11:35 MCHC 34.0 g/dL (30-55) 07/19/24 11:35 RDW 12.1 % (12.1-15.1) 07/19/24 11:35 Plt Count 275 10^3/cmm (157-399) 07/19/24 11:35 MPV 10.5 fL (7.4-10.4) H 07/19/24 11:35 Neut % (Auto) 76.2 % 07/18/24 21:44 Lymph % (Auto) 17.6 % 07/18/24 21:44 Hendricks % (Auto) 5.1 % 07/18/24 21:44 Eos % (Auto) 0.5 % 07/18/24 21:44 Baso % (Auto) 0.2 % 07/18/24 21:44 Neut # (Auto) 9.81 10^3/uL (1.8-8.0) H 07/18/24 21:44 Lymph # (Auto) 2.3 10^3/uL (1.5-6.5) 07/18/24 21:44 Hendricks # (Auto) 0.7 10^3/uL (0.2-0.9) 07/18/24 21:44 Eos # (Auto) 0.1 10^3/uL (0.0-0.8) 07/18/24 21:44 Baso # (Auto) 0.0 10^3/uL (0.0-0.1) 07/18/24 21:44 Nucleated RBC % (auto) 0 % 07/18/24 21:44 Nucleated RBCs # 0.0 /100WBC 07/18/24 21:44 HIV 1&2 Ab & HIV 1 Ag Non-reactive (Non-Reactiv) 07/19/24 11:35 HIV 1&2 Antibody Non-reactive (Non-Reactiv) 07/19/24 11:35 Blood Type O Negative 07/19/24 00:45 Rho(D) Type Rh negative 07/19/24 00:45 Antibody Screen Positive 07/19/24 00:45 Antibody Identification Anti-D 07/19/24 00:45 Procedures Performed vaginal delivery repair of second-degree perineal laceration Vitals Last Vital Signs Temp 97.6 F 07/20/24 12:58 Pulse 60 07/20/24 12:58 Resp 15 07/20/24 12:58 BP 140/78 07/20/24 12:58 Pulse Ox 98 07/19/24 10:30 O2 Del Method Room Air 07/20/24 11:00 Results Labs OB ([facility]): Obstetrics US 06/10/24 Obstetrics US/Biophysical Profile 07/10/24 Blood Type O Negative 07/19/24 Antibody Screen Positive 07/19/24 Hct 33.2 % (36-47) L 07/19/24 Hgb 11.30 g/dL (12.4-14.8) L 07/19/24 Rho(D) Type Rh negative 07/19/24 Plt Count 275 10^3/cmm (157-399) 07/19/24 HIV 1&2 Ab & HIV 1 Ag Non-reactive (Non-Reactiv) 07/19/24 TSH 0.66 uIU/mL (0.27-4.20) 06/29/22 Free T4 1.22 ng/dL (0.93-1.60) 02/07/22 C.trachomatis RNA (TMA) Not detected (NOT DETECTED) 03/04/24 N.gonorrhoeae RNA (TMA) Not detected (NOT DETECTED) 03/04/24 T. vaginalis Amp RNA Not detected (NOT DETECTED) 03/04/24 Chlamydia/GC Comment See note 03/04/24 Gest Glucose Tolerance 101 mg/dL (70-139) 04/21/24 Uric Acid 3.9 mg/dL (2.4-5.7) 05/26/24 Ser , Semi-Qnt 3048.00 mIU/mL 11/15/23 HCG, Qual Positive (Negative) H 11/10/23 Urine Opiates Screen Negative ng/mL (Negative) 03/12/24 Ur Barbiturates Screen Negative ng/mL (Negative) 03/12/24 Ur Phencyclidine Scrn Negative ng/mL (Negative) 03/12/24 Ur Amphetamines Screen Negative ng/mL (Negative) 03/12/24 U Benzodiazepines Scrn Negative ng/mL (Negative) 03/12/24 Urine Cocaine Screen Negative ng/mL (Negative) 03/12/24 U Marijuana (THC) Screen Negative ng/mL (Negative) 03/12/24 Micro Urine Specimen 07/02/22 Prolactin 5.07 ng/mL (4.8-23.3) 06/29/22 Discharge Plan Discharge Patient Disposition: Home Condition: Stable Prescriptions: Continued Alive Daily Support 180 mcg-25 mg- 25 mg tablet,chewable 1 tab PO DAILY sertraline 25 mg tablet 25 mg PO DAILY Qty: 30 3RF famotidine [Pepcid] 20 mg tablet 20 mg PO BID Qty: 60 2RF albuterol sulfate [ProAir HFA] 90 mcg/actuation HFA aerosol inhaler 2 puff INHALATION Q4H PRN (Reason: Shortness Of Breath) Discharge Orders: Discharge Order (Routine); Ordered 07/20/24 Ordered By: Alex Wilder Discharge Diet: Usual diet Discharge Activity: Increase activity as tolerated Patient Instructions: Opioid Safety Discharge Attestations POACHER OPERATOR Time Spent in Discharge Care*: less than 30 min Coding Level of Care Code Acute Code for Chg Fwd Diagnoses Vaginal delivery O80 Time Spent (min) 20
[2024-07-20 16:25] VITALS: BP 132/67; PULSE 66; TEMP 36.6
== END 2024-07-20 16:34 | disposition home or self-care (01) | DRG 807 ==
LOC: OPOB 21:28 → OBGYN 21:28
PROVIDERS: Admitting Provider Obstetrics & Gynecology; PCP Family Medicine; Visit Provider Obstetrics & Gynecology
DX: O26.893 Other specified pregnancy related conditions, third trimester (principal); Z37.0 Single live birth; F32.9 Major depressive disorder, single episode, unspecified; O99.344 Other mental disorders complicating childbirth; O70.1 Second degree perineal laceration during delivery; Z3A.39 39 weeks gestation of pregnancy; Z67.41 Type O blood, Rh negative; Z79.899 Other long term (current) drug therapy; Z88.2 Allergy status to sulfonamides
CPT/HCPCS: 36415; 36430; 59025; 59409; 80503; 85025; 85027; 85460; 86850; 86870; 86900; 87806; 90384; 99211; J2590; J7120

== ENCOUNTER 2024-08-07 00:04 | Emergency (ER) | payer OTHER, MEDICAID, SELFPAY ==
[2024-08-07 00:12] VITALS: BP 147/80; PULSE 120; RESP 18; TEMP 37.3; O2SAT 95; BMI 23.6
--- NOTE | 2024-08-07 00:18 | ED_ITS ---
HPI - Fever General: Chief Complaint: Fever Stated Complaint: Fever Time Seen by Provider: 08/07/24 00:08 Source: patient Mode of arrival: ambulatory Limitations: no limitations History of Present Illness: Patient is a 19-year-old female here for evaluation of her fever. She states she checked her temperature today and it was 100.4. Patient states she was seen at urgent care on 08/03 and diagnosed with mastitis of her right breast. She is breast-feeding. She states she just got her antibiotics today and has only had one dose. She states breast is warp tying machine tender, red, and painful although states symptoms have not significantly worsened since her urgent care visit. She is continuing to pump and apply heat and massage. She has no other systemic symptoms at this time. MD elicited complaint: fever Onset (ago): hour(s) Measured temperature: 100.4 F Exacerbating factors: nothing Relieving factors: nothing Associated symptoms: Reports chills; Deny abdominal pain, flank pain, chest pain, diarrhea, dysuria, headache(s), nasal congestion, sinus pain or vomiting Related Data Home Medications Medication Instructions Recorded Confirmed albuterol sulfate 90 mcg/actuation 2 puff inhalation Q4H PRN 02/07/22 08/03/24 aerosol inhaler (ProAir HFA) Shortness Of Breath mv-mn no.97-folic 180 mcg-dha 25 1 tab PO DAILY 07/16/23 08/03/24 mg-herb no.293 25 mg chewable tablet (Alive Daily Support ) Previous Rx's Medication Instructions Recorded sertraline 25 mg tablet 25 mg PO DAILY #30 tabs 04/21/24 famotidine 20 mg tablet (Pepcid) 20 mg PO BID #60 tabs 06/18/24 amoxicillin 875 mg-potassium 1 tab PO BID 10 days #20 tabs 08/03/24 clavulanate 125 mg tablet Allergies Allergy/AdvReac Type Severity Reaction Status Date / Time Sulfa (Sulfonamide Allergy ALGY-Hives Verified 08/07/24 00:19 Antibiotics) Review of Systems Const: Reports: fever(s) and chills; Denies: body aches, fatigue or malaise ENMT: Denies: throat pain, odynophagia, nasal discharge, nasal congestion or sinus pain Card: Denies: chest pain Resp: Denies: dyspnea, productive cough or non-productive cough GI: Denies: abdominal pain, vomiting or diarrhea : Denies: flank pain or dysuria Musc: Denies: neck pain, back pain or joint pain Skin/Breast: Reports: breast tenderness and breast pain Neuro: Denies: headache(s) PFSH ED PFSH: Medical History Vaginal delivery Active labor at term Vapes nicotine containing substance Migraine without aura Anxiety and depression No pertinent past medical history neghx: htn,dm,thyroid,dvt/pe PCP: [facility] Allergic rhinitis due to allergen Psychiatric care Surgical History History of tonsillectomy and adenoidectomy as a child History of placement of ear tubes as a child Family History Grandfather Diabetes Maternal Hypertension Maternal Denies family history of Colon cancer Ovarian cancer Heart disease Hypercholesteremia Breast cancer Uterine cancer Thyroid disease Stroke Social History Smoking and tobacco/nicotine status: never used tobacco/nicotine Physical Exam Const: COMMON NORMALS: no acute distress, average body habitus, patient oriented x3, no limitations, healthy appearing, alert and well nourished Chest: OTHER: mild erythema/warmth affecting medial/inferior portion of R breast consistent with lactational mastitis; no abscess Resp: COMMON NORMALS: normal respiratory effort and clear to auscultation bilaterally AUSCULTATION: clear to auscultation bilaterally Cardio: COMMON NORMALS: regular rhythm RATE: tachycardic RHYTHM: regular rhythm Neuro: COMMON NORMALS: patient oriented x3 SENSORIUM/ORIENTATION: Yes alert Course Vital Signs: Vital signs: Vital Signs Temperature 99.2 F 08/07/24 00:12 Pulse Rate 120 H 08/07/24 00:12 Respiratory Rate 18 08/07/24 00:12 Blood Pressure 147/80 08/07/24 00:12 Pulse Oximetry 95 08/07/24 00:12 Oxygen Delivery Me thod Room Air 08/07/24 00:12 MDM - Fever Medical Decision Making Patient here for right sided lactational mastitis. Symptoms of breast redness, pain, warmth as well as fevers, chills, myalgias are common. She is already on antibiotics that will cover for MSSA. Nothing to suggest she needs broader coverage for MRSA. No other symptoms present concerning for fever source. Recommend she continue antibiotic therapy as prescribed. She can continue breast-feeding, massaging the breast, applying warm compresses. etc. I would like her to follow-up with her primary care provider by the end of the week/early next week for reevaluation. Return to ED precautions given. No radiology studies performed this visit Discharge Plan Discharge Patient Disposition: Home Clinical Impression: Acute mastitis of right breast Condition: Stable Prescriptions: No Action amoxicillin-pot clavulanate 875-125 mg tablet 1 tab PO BID 10 Days Qty: 20 0RF Alive Daily Support 180 mcg-25 mg- 25 mg tablet,chewable 1 tab PO DAILY sertraline 25 mg tablet 25 mg PO DAILY Qty: 30 3RF famotidine [Pepcid] 20 mg tablet 20 mg PO BID Qty: 60 2RF albuterol sulfate [ProAir HFA] 90 mcg/actuation HFA aerosol inhaler 2 puff INHALATION Q4H PRN (Reason: Shortness Of Breath) Discharge Orders: Discharge ED (Routine); Ordered 08/07/24 Ordered By: Yolis Berg Referrals: Natalie Boudreaux DO [Primary Care Provider] - Patient Instructions: Mastitis, Mastitis (ED) Coding Level of Care Code ED Director Experimental Medicine for Hollie Magdaleno
[2024-08-07 00:50] VITALS: BP 125/63; PULSE 92; RESP 16; O2SAT 100
== END 2024-08-07 00:30 | disposition home or self-care (01) ==
PROVIDERS: Emergency Provider Physician Assistant; PCP Family Medicine
DX: O91.23 Nonpurulent mastitis associated with lactation (principal)
CPT/HCPCS: 99281

== ENCOUNTER → 2024-08-29 10:39 | Outpatient (BNVA) | payer OTHER, MEDICAID, SELFPAY | PROVIDERS: PCP Family Medicine; Visit Provider Nurse Practitioner | DX: J02.9 Acute pharyngitis, unspecified (principal); R05.9 Cough, unspecified | CPT/HCPCS: 87071; 87400; 87426; 87880 ==

== ENCOUNTER 2024-10-01 15:58 | Emergency (ER) | payer OTHER, MEDICAID, SELFPAY ==
[2024-10-01 16:04] VITALS: BP 107/61; PULSE 105; RESP 18; TEMP 36.6; O2SAT 98; BMI 20.4
--- NOTE | 2024-10-01 18:54 | ED_ITS ---
HPI - General Adult General: Chief complaint: General Medical Stated complaint: bodyache, neck and shoulder pain, hip pain Time Seen by Provider: 10/01/24 18:47 Source: patient Mode of arrival: ambulatory Limitations: no limitations History of Present Illness: 19-year-old female states she has had a migraine headache throughout the day states she also been having some low back pains. She states that headaches been gradual rates it a 5 out of 10 she denies any fever denies any cough denies any abdominal pain or vomiting. Associated symptoms: Reports headache(s); Deny chest pain, dyspnea, nausea, rash or vomiting Related Data Home Medications Medication Instructions Recorded Confirmed albuterol sulfate 90 mcg/actuation 2 puff inhalation Q4H PRN 02/07/22 09/29/24 aerosol inhaler (ProAir HFA) Shortness Of Breath mv-mn no.97-folic 180 mcg-dha 25 1 tab PO DAILY 07/16/23 09/29/24 mg-herb no.293 25 mg chewable tablet (Alive Daily Support ) ibuprofen 800 mg tablet 800 mg PO ONCE PRN 08/13/24 09/29/24 Previous Rx's Medication Instructions Recorded citalopram 20 mg tablet 20 mg PO DAILY #30 tabs 09/03/24 aripiprazole 15 mg tablet (Abilify) 7.5 mg (1/2 x 15 mg) PO BEDTIME 10/01/24 #60 tabs doxycycline hyclate 100 mg capsule 100 mg PO BID 7 days #14 caps 10/01/24 methocarbamol 750 mg tablet 750 mg PO Q6H PRN spasms #20 tabs 10/01/24 metronidazole 500 mg tablet 500 mg PO BID 7 days #14 tabs 10/01/24 Allergies Allergy/AdvReac Type Severity Reaction Status Date / Time Sulfa (Sulfonamide Allergy ALGY-Hives Verified 09/30/24 10:03 Antibiotics) Review of Systems Const: Denies: fever(s), chills, body aches or change in appetite ENMT: Denies: throat pain or dental pain Card: Denies: chest pain Resp: Denies: dyspnea GI: Denies: abdominal pain, nausea, vomiting or diarrhea Musc: Reports: back pain; Denies: neck pain Skin/Breast: Denies: rash Neuro: Reports: headache(s) PFSH ED PFSH: Medical History Vaginal delivery Active labor at term Vapes nicotine containing substance Migraine without aura Anxiety and depression No pertinent past medical history neghx: htn,dm,thyroid,dvt/pe PCP: [facility] Allergic rhinitis due to allergen Psychiatric care Surgical History History of tonsillectomy and adenoidectomy as a child History of placement of ear tubes as a child Family History Grandfather Diabetes Maternal Hypertension Maternal Denies family history of Colon cancer Ovarian cancer Heart disease Hypercholesteremia Breast cancer Uterine cancer Thyroid disease Stroke Social History Smoking and tobacco/nicotine status: current every day tobacco/nicotine user Physical Exam Const: COMMON NORMALS: no acute distress, patient oriented x3 and healthy appearing HENMT: COMMON NORMALS: normocephalic and atraumatic HEAD & SCALP: normocephalic and atraumatic Eye: COMMON NORMALS: conjunctivae normal CONJUNCTIVA: Yes conjunctivae normal Neck/C-Spine: COMMON NORMALS: full ROM and supple Chest: COMMONS NORMALS: normal inspection of the chest Resp: COMMON NORMALS: normal respiratory effort Cardio: COMMON NORMALS: regular rate, regular rhythm and No murmurs present (Cardio) RATE: regular rate RHYTHM: regular rhythm GI: COMMON NORMALS: Normal to inspection, nondistended, normoactive bowel sounds present, Soft to palpation, non-tender and no masses PALPATION: Yes Soft to palpation Extremity: COMMON NORMALS: normal to inspection and full ROM Neuro: COMMON NORMALS: patient oriented x3, moves all extremities and no focal motor deficits Psych: COMMON NORMALS: mental status grossly normal, Normal thought process present and cooperative THOUGHT PROCESS: Normal thought process present Skin: COMMON NORMALS: no rashes or lesions noted and no wounds GENERAL SKIN EXAM: no rashes or lesions noted Course Vital Signs: Vital signs: Vital Signs Temperature 97.9 F 10/01/24 16:04 Pulse Rate 105 H 10/01/24 16:04 Respiratory Rate 18 10/01/24 16:04 Blood Pressure 107/61 10/01/24 16:04 Pulse Oximetry 98 10/01/24 16:04 Oxygen Delivery Me thod Room Air 10/01/24 16:04 MDM - General Adult Medical Decision Making Patient presents here with headache along with some back pain is likely migraine and muscular back pain she is well-appearing here urine is normal she stable for discharge follow-up PCP return if worsening. Medical Records I reviewed the patient's medical records. Lab Data I reviewed the patient's lab results. Laboratory Results HCG, Qual Cancelled 10/01/24 18:40 Urine Color Yellow (Yellow) 10/01/24 18:40 Urine Appearance Clear (CLEAR) 10/01/24 18:40 Urine pH 7.0 (5-7) 10/01/24 18:40 Ur Specific [place] 1.009 (1.005-1.030) 10/01/24 18:40 Urine Protein Negative (Negative) 10/01/24 18:40 Urine Glucose (UA) Negative (Normal) 10/01/24 18:40 Urine Ketones Negative (Negative) 10/01/24 18:40 Urine Blood Non-haemolysed trace (Negative) 10/01/24 18:40 Urine Nitrate Negative (Negative) 10/01/24 18:40 Urine Bilirubin Negative (Negative) 10/01/24 18:40 Urine Urobilinogen 0.2 mg/dL (Negative) 10/01/24 18:40 Ur Leukocyte Esterase Negative (Negative) 10/01/24 18:40 Urine RBC 0-2 /hpf (0-2) 10/01/24 18:40 Urine WBC 0-5 /hpf (0-5) 10/01/24 18:40 Ur Squamous Epith Cells 0-5 /hpf (0-5) 10/01/24 18:40 Amorphous Sediment Not Reportable 10/01/24 18:40 Urine Bacteria None seen /hpf (NONE) 10/01/24 18:40 Hyaline Casts 0-4 /lpf H 10/01/24 18:40 No radiology studies performed this visit Discharge Plan Discharge Patient Disposition: Home Clinical Impression: Headache, Back pain Condition: Stable Prescriptions: New methocarbamol 750 mg tablet 750 mg PO Q6H PRN (Reason: spasms) Qty: 20 0RF No Action Alive Daily Support 180 mcg-25 mg- 25 mg tablet,chewable 1 tab PO DAILY ibuprofen 800 mg tablet 800 mg PO ONCE PRN citalopram 20 mg tablet 20 mg PO DAILY Qty: 30 3RF Rx Instructions: take one tab daily aripiprazole [Abilify] 15 mg tablet 7.5 mg PO BEDTIME Qty: 60 0RF doxycycline hyclate 100 mg capsule 100 mg PO BID 7 Days Qty: 14 0RF metronidazole 500 mg tablet 500 mg PO BID 7 Days Qty: 14 0RF albuterol sulfate [ProAir HFA] 90 mcg/actuation HFA aerosol inhaler 2 puff INHALATION Q4H PRN (Reason: Shortness Of Breath) Discharge Orders: Discharge ED (Routine); Ordered 10/01/24 Ordered By: Etienne Tapia Referrals: Natalie Boudreaux DO [Primary Care Provider] - 4-7 days Discharge Diet: Advance as tolerated Discharge Activity: Resume usual activity Patient Instructions: Headache, Back Pain (ED) Coding Level of Care Code ED Inspector And Tester for Hollie Magdaleno
[2024-10-01 19:00] LABS: Bilirubin Urine Negative (Negative); Blood Urine Non-haemolysed trace (Negative); Glucose Urine UA Negative (Normal); Ketones Urine Negative (Negative); Leukocyte Esterase Urine Negative (Negative); Nitrate Urine Negative (Negative); Protein Urine Negative (Negative); Specific Gravity, Urine 1.009 (1.005-1.030); Urine Appearance Clear (CLEAR); Urine Color Yellow (Yellow); Urobilinogen Urine 0.2 mg/dL (Negative)
[2024-10-01 19:06] LABS: Add Urine Microscopic? YES; Bacteria Urine None Seen /hpf; Hyaline Casts Urine 0-4 /lpf; RBC Urine 0-2 /hpf (0-2); Squamous Epithelial Cell Urine 0-5 /hpf (0-5); WBC Urine 0-5 /hpf (0-5)
[2024-10-01] MEDS: diphenhydrAMINE 50 mg/mL SDV 1mL IM (19:09)
[2024-10-01] MEDS: metoclopramide 5 mg/mL SDV 2 mL 10 MG IM (19:12)
[2024-10-01 19:14] VITALS: BP 116/85; RESP 14
[2024-10-01] MEDS: ketorolac 60 mg/2 mL INJ IM (19:15)
[2024-10-01 19:44] VITALS: BP 110/68; PULSE 68; O2SAT 100
== END 2024-10-01 19:45 | disposition home or self-care (01) ==
PROVIDERS: Emergency Medicine; Emergency Provider Emergency Medicine; PCP Family Medicine
DX: R51.9 Headache, unspecified (principal); M54.9 Dorsalgia, unspecified; Z72.0 Tobacco use
CPT/HCPCS: 81001; 96372; 99284; J1200; J1885; J2765

== ENCOUNTER 2024-10-31 20:52 | Emergency (ER) | payer MEDICAID, OTHER, SELFPAY ==
[2024-10-31 20:57] VITALS: BP 108/76; PULSE 100; RESP 19; TEMP 36.7; O2SAT 100; BMI 18.7
[2024-10-31 21:49] LABS: Covid PCR NEGATIVE (Negative); Influenza A NEGATIVE (Negative); Influenza B NEGATIVE (Negative); Respiratory Syncytial Virus Ce NEGATIVE (Negative)
--- NOTE | 2024-10-31 22:12 | W.ED.URI ---
HPI - URI/Sore Throat General: Chief Complaint: Upper Respiratory Infection Stated Complaint: coughing Time Seen by Provider: 10/31/24 21:46 Source: patient Mode of arrival: ambulatory Limitations: no limitations History of Present Illness: Patient is a 19-year-old female with no pertinent past medical history who reports to the emergency department complaining of productive cough greater than 1 week. She is also complaining of congestion and runny nose, shortness of breath and chest pain with coughing. Denies any known sick contacts. Reports history of tonsillectomy and adenoidectomy, she is not having any sore throat. Also has had tubes in her ears. She has not taken anything [id number] for her symptoms. No fevers, nausea/vomiting/diarrhea, urinary symptoms, or other symptoms at this time. MD elicited complaint: cough, rhinorrhea and nasal congestion Onset (ago): week(s) Consistency: constant Able to tolerate fluids by mouth: Yes Exacerbating factors: nothing Relieving factors: nothing Associated symptoms: Reports nasal congestion; Deny abdominal pain, chills, chest pain, diarrhea, ear or mastoid pain, fever(s), headache(s), nausea or vomiting Treatments prior to arrival: none Related Data Home Medications Medication Instructions Recorded Confirmed albuterol sulfate 90 mcg/actuation 2 puff inhalation Q4H PRN 02/07/22 09/29/24 aerosol inhaler (ProAir HFA) Shortness Of Breath mv-mn no.97-folic 180 mcg-dha 25 1 tab PO DAILY 07/16/23 09/29/24 mg-herb no.293 25 mg chewable tablet (Alive Daily Support ) ibuprofen 800 mg tablet 800 mg PO ONCE PRN 08/13/24 09/29/24 Previous Rx's Medication Instructions Recorded citalopram 20 mg tablet 20 mg PO DAILY #30 tabs 09/03/24 aripiprazole 15 mg tablet (Abilify) 7.5 mg (1/2 x 15 mg) PO BEDTIME 10/01/24 #60 tabs doxycycline hyclate 100 mg capsule 100 mg PO BID 7 days #14 caps 10/01/24 methocarbamol 750 mg tablet 750 mg PO Q6H PRN spasms #20 tabs 10/01/24 metronidazole 500 mg tablet 500 mg PO BID 7 days #14 tabs 10/01/24 azithromycin 500 mg tablet 500 mg PO DAILY 5 days #5 tabs 10/31/24 prednisone 20 mg tablet 60 mg (3 x 20 mg) PO ONCE 5 days 10/31/24 #15 tabs Allergies Allergy/AdvReac Type Severity Reaction Status Date / Time Sulfa (Sulfonamide Allergy ALGY-Hives Verified 10/31/24 21:04 Antibiotics) Review of Systems General: Reports: 10 or more systems reviewed and unremarkable except in HPI and below Const: Denies: fever(s), chills or fatigue Eyes: Denies: change in vision ENMT: Reports: nasal discharge and nasal congestion; Denies: throat pain or ear or mastoid pain Card: Denies: chest pain, palpitations, swelling of feet/ankles or lightheadedness Resp: Reports: dyspnea, productive cough and pain on inspiration; Denies: wheezing GI: Denies: abdominal pain, nausea, vomiting, diarrhea or constipation : Denies: flank pain, difficulty voiding, dysuria or urinary frequency Musc: Denies: neck pain, back pain or joint pain Skin/Breast: Denies: rash Neuro: Denies: headache(s), numbness in extremities or weakness in extremities PFSH ED PFSH: Medical History Vaginal delivery Active labor at term Vapes nicotine containing substance Migraine without aura Anxiety and depression No pertinent past medical history neghx: htn,dm,thyroid,dvt/pe PCP: [facility] Allergic rhinitis due to allergen Psychiatric care Surgical History History of tonsillectomy and adenoidectomy as a child History of placement of ear tubes as a child Family History Grandfather Diabetes Maternal Hypertension Maternal Denies family history of Colon cancer Ovarian cancer Heart disease Hypercholesteremia Breast cancer Uterine cancer Thyroid disease Stroke Social History Smoking and tobacco/nicotine status: current every day tobacco/nicotine user Female Reproductive History: Date of last menstrual period: 10/18/24 Physical Exam Const: COMMON NORMALS: no acute distress and healthy appearing GENERAL APPEARANCE: cooperative, comfortable and well developed HENMT: COMMON NORMALS: normocephalic, atraumatic, hearing grossly normal bilaterally, external ears normal, EAC's normal, TM's normal bilaterally, Normal external nose present and Normal nasal mucous membranes and turbinates present HEAD & SCALP: normal to inspection, normocephalic and atraumatic FACE & SINUS: normal facial exam and sinuses nontender NOSE: Normal external nose present, Normal nares present, No nasal polyps present and Normal nasal mucous membranes and turbinates present EXTERNAL EAR: Yes external ears normal EXTERNAL AUDITORY CANAL: EAC's normal TYMPANIC MEMBRANE: TM's normal bilaterally MOUTH: Normal oral and palatal mucosa present THROAT: posterior oropharynx normal, uvula midline and tonsils absent Eye: COMMON NORMALS: EOMs intact bilaterally, conjunctivae normal and normal visual sarmiento by confrontation GENERAL EYE: appearance normal, both eyes and all related structures CONJUNCTIVA: Yes conjunctivae normal Neck/C-Spine: COMMON NORMALS: full ROM, no lymphadenopathy, supple and no meningeal signs GENERAL: Yes normal visual inspection Chest: COMMONS NORMALS: normal inspection of the chest Resp: COMMON NORMALS: normal respiratory effort and clear to auscultation bilaterally EFFORT & INSPECTION: Yes able to speak in complete sentences and Yes Actively coughing AUSCULTATION: clear to auscultation bilaterally Cardio: COMMON NORMALS: regular rate, regular rhythm, S1 normal heart sound present and S2 normal heart sound present RATE: regular rate RHYTHM: regular rhythm HEART SOUNDS: S1 normal heart sound present, S2 normal heart sound present, no gallops, no murmurs and no rubs GI: COMMON NORMALS: Soft to palpation and No hepatosplenomegaly present INSPECTION: Yes normal to inspection PALPATION: Yes Soft to palpation and Yes No hepatosplenomegaly present Extremity: COMMON NORMALS: normal to inspection, full ROM and capillary refill normal Neuro: MENINGEAL SIGNS: Yes no meningeal signs Skin: COMMON NORMALS: no rashes or lesions noted GENERAL SKIN EXAM: no rashes or lesions noted Course Vital Signs: Vital signs: Vital Signs Temperature 98.0 F 10/31/24 20:57 Pulse Rate 100 10/31/24 20:57 Respiratory Rate 19 H 10/31/24 20:57 Blood Pressure 108/76 10/31/24 20:57 Pulse Oximetry 100 10/31/24 20:57 Oxygen Delivery Me thod Room Air 10/31/24 20:57 MDM - URI/Sore Throat Medical Decision Making Patient greater than 1 week of symptoms. She is having productive cough that is not improving, though she has not tried anything [id number]. Swab for COVID flu and RSV was negative. No reported sick contacts, history of tonsillectomy and adenoidectomy with normal posterior oropharyngeal exam. Will go ahead and treat for potential acute bronchitis, though this still might remain viral. Also will have her treat with Zyrtec or Claritin [id number] in case this is allergic in nature. Her lungs were clear to auscultation, she was afebrile and I have little concern for anything systemic or any pneumonia. Will have her follow-up with primary care if she is not getting any better. Lab Data Laboratory Results Coronavirus (PCR) Negative (Negative) 10/31/24 21:05 Influenza A (PCR) Negative (Negative) 10/31/24 21:05 Influenza Type B (PCR) Negative (Negative) 10/31/24 21:05 RSV (PCR) Negative (Negative) 10/31/24 21:05 No radiology studies performed this visit Discharge Plan Discharge Patient Disposition: Home Clinical Impression: Acute bronchitis Condition: Stable Prescriptions: New prednisone 20 mg tablet 60 mg PO ONCE 5 Days Qty: 15 0RF azithromycin 500 mg tablet 500 mg PO DAILY 5 Days Qty: 5 0RF No Action Alive Daily Support 180 mcg-25 mg- 25 mg tablet,chewable 1 tab PO DAILY ibuprofen 800 mg tablet 800 mg PO ONCE PRN citalopram 20 mg tablet 20 mg PO DAILY Qty: 30 3RF Rx Instructions: take one tab daily aripiprazole [Abilify] 15 mg tablet 7.5 mg PO BEDTIME Qty: 60 0RF doxycycline hyclate 100 mg capsule 100 mg PO BID 7 Days Qty: 14 0RF metronidazole 500 mg tablet 500 mg PO BID 7 Days Qty: 14 0RF albuterol sulfate [ProAir HFA] 90 mcg/actuation HFA aerosol inhaler 2 puff INHALATION Q4H PRN (Reason: Shortness Of Breath) methocarbamol 750 mg tablet 750 mg PO Q6H PRN (Reason: spasms) Qty: 20 0RF Discharge Orders: Discharge ED (Routine); Ordered 10/31/24 Ordered By: Daniel Dunn Referrals: Natalie Boudreaux DO [Primary Care Provider] - Patient Instructions: Acute Bronchitis (ED) Activity Restrictions/Additional Instructions: Take azithromycin as prescribed. Prednisone as prescribed. Consider taking [id number] allergy medication such as Zyrtec or Claritin. Make sure you are drinking plenty of fluids. If your condition is not improving, follow-up with your primary care provider for further evaluation. Coding Level of Care Code ED Washer Operator for Hollie Magdaleno
[2024-10-31] MEDS: dexamethasone 10 mg/mL INJ IM (22:24)
== END 2024-10-31 22:48 | disposition home or self-care (01) ==
PROVIDERS: General Practice; Emergency Provider Physician Assistant; PCP Family Medicine
DX: J20.9 Acute bronchitis, unspecified (principal); Z11.52 Encounter for screening for COVID-19; Z72.0 Tobacco use
CPT/HCPCS: 87637; 96372; 99284; J1100

== ENCOUNTER → 2024-11-23 15:22 | Outpatient (BNVA) | payer OTHER, MEDICAID, SELFPAY | PROVIDERS: PCP Family Medicine; Visit Provider Emergency Medicine | DX: R39.9 Unspecified symptoms and signs involving the genitourinary system (principal) | CPT/HCPCS: 81000; 87086 ==

== ENCOUNTER → 2024-12-05 16:39 | Outpatient (BNVA) | payer OTHER, MEDICAID, SELFPAY | PROVIDERS: PCP Family Medicine; Visit Provider Family Medicine | DX: R39.9 Unspecified symptoms and signs involving the genitourinary system (principal) | CPT/HCPCS: 81025 ==

== ENCOUNTER 2024-12-31 21:19 | Emergency (ER) | payer OTHER, MEDICAID, SELFPAY ==
[2024-12-31 21:29] VITALS: BP 118/75; PULSE 87; RESP 14; TEMP 36.3; O2SAT 100
--- NOTE | 2024-12-31 21:45 | W.ED.PREGNAN ---
HPI - General: Chief complaint: Vaginal Bleeding Stated complaint: 3Weeks and 3 days Pregnate heavy bleeding Time Seen by Provider: 12/31/24 21:38 History of Present Illness: Patient is a 19-year-old G2, P1 female who says she is approximately 3 weeks and 3 days having bleeding and cramps started about an hour ago. Per chart review patient's blood type is O-. She says she has soaked through 1 pad liner in the last hour. She has not had any problems this up until now. She has not seen an OB for this . But she does have 1 scheduled coming up. Patient has no other complaints at this time. Related Data : 2 Home Medications ?Medication ?Instructions ?Recorded ?Confirmed albuterol sulfate 90 mcg/actuation 2 puff inhalation Q4H PRN 02/07/22 12/05/24 aerosol inhaler (ProAir HFA) Shortness Of Breath mv-mn no.97-folic 180 mcg-dha 25 1 tab PO DAILY 07/16/23 12/05/24 mg-herb no.293 25 mg chewable tablet (Alive Daily Support ) ibuprofen 800 mg tablet 800 mg PO ONCE PRN 08/13/24 12/05/24 Previous Rx's ?Medication ?Instructions ?Recorded citalopram 20 mg tablet 20 mg PO DAILY #30 tabs 09/03/24 aripiprazole 15 mg tablet (Abilify) 7.5 mg (1/2 x 15 mg) PO BEDTIME 10/01/24 #60 tabs methocarbamol 750 mg tablet 750 mg PO Q6H PRN spasms #20 tabs 10/01/24 ondansetron 8 mg disintegrating 8 mg PO Q8H PRN nausea and 11/23/24 tablet vomiting 5 days #15 tabs Allergies Allergy/AdvReac Type Severity Reaction Status Date / Time Sulfa (Sulfonamide Allergy ALGY-Hives Verified 12/31/24 21:34 Antibiotics) Review of Systems General: Reports: 10 or more systems reviewed and unremarkable except in HPI and below PFSH ED PFSH: Medical History Vaginal delivery Active labor at term Vapes nicotine containing substance Migraine without aura Anxiety and depression No pertinent past medical history neghx: htn,dm,thyroid,dvt/pe PCP: [facility] Allergic rhinitis due to allergen Psychiatric care Surgical History History of tonsillectomy and adenoidectomy as a child History of placement of ear tubes as a child Family History Grandfather Diabetes Maternal Hypertension Maternal Denies family history of Colon cancer Ovarian cancer Heart disease Hypercholesteremia Breast cancer Uterine cancer Thyroid disease Stroke Social History Smoking and tobacco/nicotine status: never used tobacco/nicotine Female Reproductive History: : 2 Physical Exam Const: COMMON NORMALS: no acute distress, average body habitus, patient oriented x3, no limitations, healthy appearing, alert and well nourished HENMT: COMMON NORMALS: normocephalic, atraumatic, hearing grossly normal bilaterally, external ears normal, Normal external nose present, moist oral mucous membranes and oropharynx normal HEAD & SCALP: normocephalic and atraumatic NOSE: Normal external nose present EXTERNAL EAR: Yes external ears normal Neck/C-Spine: COMMON NORMALS: no JVD Chest: COMMONS NORMALS: normal inspection of the chest and normal palpation of entire chest wall Resp: COMMON NORMALS: normal respiratory effort, No retractions, No use of accessory muscles and clear to auscultation bilaterally AUSCULTATION: clear to auscultation bilaterally Cardio: COMMON NORMALS: no JVD, regular rate, regular rhythm, S1 normal heart sound present, S2 normal heart sound present, No gallops present (Cardio), No clicks present (Cardio), No murmurs present (Cardio) and No rub (Cardio) RATE: regular rate RHYTHM: regular rhythm HEART SOUNDS: S1 normal heart sound present and S2 normal heart sound present GI: COMMON NORMALS: Normal to inspection, nondistended, normoactive bowel sounds present, Soft to palpation, No hepatosplenomegaly present and no masses; negative for non-tender (Mildly tender with palpation over suprapubic area) PALPATION: Yes Soft to palpation and Yes No hepatosplenomegaly present Neuro: COMMON NORMALS: patient oriented x3 SENSORIUM/ORIENTATION: Yes alert Course Vital Signs: Vital signs: Vital Signs Temperature 97.4 F L 12/31/24 21:29 Pulse Rate 86 12/31/24 22:30 Respiratory Rate 14 12/31/24 21:29 Blood Pressure 117/55 12/31/24 22:30 Pulse Oximetry 100 12/31/24 22:30 Oxygen Delivery Me thod Room Air 12/31/24 22:30 MDM - OB/Uterine Contractions Medical Decision Making Physical exam was performed, lab work was obtained, quantitative hCG was approximately 550. These results was discussed with the patient. Patient will be following up similar within the next 4872 hours for repeat hCG. Patient understands and patient will be discharged. Medical Records I reviewed the patient's medical records. Lab Data I reviewed the patient's lab results. 12/31/24 21:52 12/31/24 21:52 Laboratory Results WBC 13.83 10^3/uL (4.5-13.0) H 12/31/24 21:52 RBC 4.34 10^6/uL (3.85-5.65) 12/31/24 21:52 Hgb 12.80 g/dL (12.4-14.8) 12/31/24 21:52 Hct 39.1 % (36-47) 12/31/24 21:52 MCV 90.1 fl (85-98) 12/31/24 21:52 MCH 29.5 pg (27-33) 12/31/24 21:52 MCHC 32.7 g/dL (30-55) 12/31/24 21:52 RDW 12.3 % (12.1-15.1) 12/31/24 21:52 Plt Count 368 10^3/cmm (157-399) 12/31/24 21:52 MPV 9.1 fL (7.4-10.4) 12/31/24 21:52 Neut % (Auto) 65.7 % 12/31/24 21:52 Lymph % (Auto) 25.1 % 12/31/24 21:52 Emmet % (Auto) 6.4 % 12/31/24 21:52 Eos % (Auto) 2.0 % 12/31/24 21:52 Baso % (Auto) 0.4 % 12/31/24 21:52 Neut # (Auto) 9.09 10^3/uL (1.8-8.0) H 12/31/24 21:52 Lymph # (Auto) 3.5 10^3/uL (1.5-6.5) 12/31/24 21:52 Emmet # (Auto) 0.9 10^3/uL (0.2-0.9) 12/31/24 21:52 Eos # (Auto) 0.3 10^3/uL (0.0-0.8) 12/31/24 21:52 Baso # (Auto) 0.1 10^3/uL (0.0-0.1) 12/31/24 21:52 Nucleated RBC % (auto) 0 % 12/31/24 21:52 Nucleated RBCs # 0.0 /100WBC 12/31/24 21:52 Sodium 140 mmol/L (136-145) 12/31/24 21:52 Potassium 4.0 mmol/L (3.5-5.1) 12/31/24 21:52 Chloride 104 mmol/L (98-107) 12/31/24 21:52 Carbon Dioxide 24 mmol/L (22-29) 12/31/24 21:52 Anion Gap 16.0 (5-19) 12/31/24 21:52 BUN 13 mg/dL (6-20) 12/31/24 21:52 Creatinine 0.6 mg/dL (0.5-0.9) 12/31/24 21:52 GFR Calculation 127.5 mL/min (90-130) 12/31/24 21:52 Glucose 87 mg/dL (65-115) 12/31/24 21:52 Calculated Osmolality 289 mOsm/kg (285-295) 12/31/24 21:52 Calcium 9.4 mg/dL (8.5-10.5) 12/31/24 21:52 Total Bilirubin 0.3 mg/dL (0.15-1.2) 12/31/24 21:52 AST 16 U/L (0-32) 12/31/24 21:52 ALT 13 U/L (0-33) 12/31/24 21:52 Alkaline Phosphatase 74 U/L (35-105) 12/31/24 21:52 Total Protein 7.2 g/dL (6.6-8.7) 12/31/24 21:52 Albumin 4.4 g/dL (3.5-5.2) 12/31/24 21:52 Globulin 2.8 g/dL (1.3-4.6) 12/31/24 21:52 Ser , Semi-Qnt 549.80 mIU/mL 12/31/24 21:52 Urine Color Yellow (Yellow) 12/31/24 21:45 Urine Appearance Cloudy (CLEAR) A 12/31/24 21:45 Urine pH 6.5 (5-7) 12/31/24 21:45 Ur Specific [place] 1.020 (1.005-1.030) 12/31/24 21:45 Urine Protein Trace (Negative) A 12/31/24 21:45 Urine Glucose (UA) Negative (Normal) 12/31/24 21:45 Urine Ketones Negative (Negative) 12/31/24 21:45 Urine Blood 3+ (Negative) A 12/31/24 21:45 Urine Nitrate Negative (Negative) 12/31/24 21:45 Urine Bilirubin Negative (Negative) 12/31/24 21:45 Urine Urobilinogen 1.0 mg/dL (Negative) 12/31/24 21:45 Ur Leukocyte Esterase Trace (Negative) A 12/31/24 21:45 Urine RBC >100 /hpf (0-2) H 12/31/24 21:45 Urine WBC 0-4 /hpf (0-5) H 12/31/24 21:45 Ur Squamous Epith Cells 5-10 /hpf (0-5) H 12/31/24 21:45 Amorphous Sediment Not Reportable 12/31/24 21:45 Urine Bacteria Trace /hpf (NONE) 12/31/24 21:45 All radiology interpretation(s) finalized by discharge Discharge Plan Discharge Patient Disposition: Home Clinical Impression: Vaginal bleeding during Condition: Stable Prescriptions: No Action Alive Daily Support 180 mcg-25 mg- 25 mg tablet,chewable 1 tab PO DAILY ibuprofen 800 mg tablet 800 mg PO ONCE PRN citalopram 20 mg tablet 20 mg PO DAILY Qty: 30 3RF Rx Instructions: take one tab daily ondansetron 8 mg tablet,disintegrating 8 mg PO Q8H PRN (Reason: nausea and vomiting) 5 Days Qty: 15 0RF aripiprazole [Abilify] 15 mg tablet 7.5 mg PO BEDTIME Qty: 60 0RF albuterol sulfate [ProAir HFA] 90 mcg/actuation HFA aerosol inhaler 2 puff INHALATION Q4H PRN (Reason: Shortness Of Breath) methocarbamol 750 mg tablet 750 mg PO Q6H PRN (Reason: spasms) Qty: 20 0RF Discharge Orders: Discharge ED (Routine); Ordered 12/31/24 Ordered By: Jef Palmer Referrals: Natalie Boudreaux DO [Primary Care Provider] - 1-3 days Patient Instructions: Activity Restrictions/Additional Instructions: Your evaluation in the ER showed your quantitative hCG was approximately 550. Please follow-up in the next 48 to 72 hours to have this number redrawn. This number should double approximately every 48-72 hours. This is the best sign of your . Thank you for choosing [facility] for your healthcare needs today. Please realize that you were seen in the emergency department and that we are providing you with an emergency medical screening exam and this may not be a complete and all exclusive of all testing and/or medical workup we may need to determine your element or severity of your illness. It is very important that you follow-up as instructed with your primary care provider or specialist for the additional evaluation and to discuss your medical treatment plan. You may return to the emergency department should you have concerns or if your condition changes or worsens in any way. Print Language: Colombian Coding Level of Care Code ED Road Contractor for Hollie Magdaleno
[2024-12-31 21:51] VITALS: BP 121/67; PULSE 87; O2SAT 100
[2024-12-31 21:54] LABS: Bilirubin Urine Negative (Negative); Blood Urine 3+ (Negative); Glucose Urine UA Negative (Normal); Ketones Urine Negative (Negative); Leukocyte Esterase Urine Trace (Negative); Nitrate Urine Negative (Negative); Protein Urine Trace (Negative); Urine Appearance Cloudy (CLEAR); Urine Color Yellow (Yellow); pH Urine 6.5 (5-7)
[2024-12-31 22:04] VITALS: BP 121/56; PULSE 91; O2SAT 98
[2024-12-31 22:12] LABS: Basophils # 0.1 10^3/uL (0.0-0.1); Basophils % 0.4 %; Eosinophils # 0.3 10^3/uL (0.0-0.8); Hematocrit 39.1 % (36-47); Lymphocytes # 3.5 10^3/uL (1.5-6.5); Lymphocytes % 25.1 %; Mean Corpuscular HGB Conc 32.7 g/dL (30-55); Mean Corpuscular Hemoglobin 29.5 pg (27-33); Mean Corpuscular Volume 90.1 fl (85-98); Mean Platelet Volume 9.1 fL (7.4-10.4); Monocytes # 0.9 10^3/uL (0.2-0.9); Monocytes % 6.4 %; Neutrophils # 9.09 10^3/uL (1.8-8.0); Neutrophils % 65.7 %; Nucleated Red Blood Cells % 0 %; Platelet Count 368 10^3/cmm (157-399); Red Blood Count 4.34 10^6/uL (3.85-5.65); Red Cell Distribution Width 12.3 % (12.1-15.1); White Blood Count 13.83 10^3/uL (4.5-13.0)
[2024-12-31 22:23] LABS: Add Urine Microscopic? YES; Bacteria Urine TRACE /hpf; RBC Urine >100 /hpf (0-2); UA Manual Slide Review YES; UA Slide Review UA Slide Review Perf; WBC Urine 0-4 /hpf (0-5)
[2024-12-31 22:26] LABS: Add Urine Culture? Yes
[2024-12-31 22:30] VITALS: BP 117/55; PULSE 86; O2SAT 100
[2024-12-31 22:49] LABS: Alanine Aminotransferase 13 U/L (0-33); Albumin Level 4.4 g/dL (3.5-5.2); Alkaline Phosphatase 74 U/L (35-105); Aspartate Amino Transferase 16 U/L (0-32); Blood Urea Nitrogen 13 mg/dL (6-20); Calcium 9.4 mg/dL (8.5-10.5); Carbon Dioxide 24 mmol/L (22-29); Chloride 104 mmol/L (98-107); Creatinine Clr Calc Pharmacy 112.6977; Globulin 2.8 g/dL (1.3-4.6); Glomerular Filtration Rate 127.5 mL/min (90-130); Glucose 87 mg/dL (65-115); Osmolality Calculated 289 mOsm/kg (285-295); Sodium 140 mmol/L (136-145); Total Bilirubin 0.3 mg/dL (0.15-1.2); Total Protein 7.2 g/dL (6.6-8.7)
[2024-12-31 23:05] VITALS: BP 121/57; PULSE 89; O2SAT 98
== END 2024-12-31 23:06 | disposition home or self-care (01) ==
PROVIDERS: Emergency Provider Emergency Medicine; PCP Family Medicine
DX: O20.9 Hemorrhage in early pregnancy, unspecified (principal); Z3A.01 Less than 8 weeks gestation of pregnancy
CPT/HCPCS: 36415; 80053; 81001; 84702; 85025; 87086; 99283

== ENCOUNTER → 2025-01-02 16:43 | Outpatient (BNVA) | payer OTHER, MEDICAID, SELFPAY | PROVIDERS: PCP Family Medicine; Visit Provider Family Medicine | DX: O03.9 Complete or unspecified spontaneous abortion without complication (principal); R39.9 Unspecified symptoms and signs involving the genitourinary system | CPT/HCPCS: 81025; 84702 ==

== ENCOUNTER 2025-01-07 18:48 | Emergency (ER) | payer OTHER, MEDICAID, SELFPAY ==
--- NOTE | 2025-01-07 18:50 | USR_ITS ---
PROCEDURE INFORMATION: Exam: US First Trimester, Transabdominal and US , Transvaginal Exam date and time: 01/07/2025 7:23 PM Age: 19 years old Clinical indication: Lmp or gestational age (in weeks): 4w 3d by lmp; Antepartum complications; G2-p1-a0-l1 presenting with vaginal bleeding; Additional info: Miscarriage LABS AND CLINICAL REPORTS: Last menstrual period start date: 12/07/2024 Gestational age (Established): 4 w 3 d Estimated due date (Established): 09/13/2025 TECHNIQUE: Imaging protocol: Real-time transabdominal obstetrical ultrasound of the maternal pelvis and a first trimester , less than 14 weeks 0 days, with image documentation. Transvaginal imaging was used for better evaluation of the fetus, adnexa, and/or cervix. COMPARISON: US OB BPP NST [id number] 07/10/2024 6:09 AM FINDINGS: GESTATION: Gestation: No definitive intrauterine gestational sac can be identified at this time. Embryo/ cardiac activity (BPM): Not attainable Extra-embryonic membranes/Placenta: Not attainable Amniotic/Chorionic fluid: Not attainable BIOMETRY: Gestational age (AUA): Not attainable MATERNAL: Uterus: Uterus measures 7.9 cm x 5.17 cm x 4.06 cm. The uterus measures 7.9 x 5.2 x 4.1 cm. Cervix: Unremarkable. Endocervical canal is closed. Right ovary/adnexa: Right ovary measures 2.5 cm x 2.5 cm x 1.5 cm. Right ovarian volume is 4.8 mL. Preserved flow to the right ovary. There are follicular changes in the right ovary. Left ovary/adnexa: Left ovary measures 3 cm x 2 cm x 2.7 cm. Left ovarian volume is 8.5 mL. Preserved flow to the left ovary. There are follicular changes in the left ovary. Intraperitoneal space: There is no free fluid. US/US OB <= 14 weeks fetus [id number] IMPRESSION: No definitive intrauterine gestational sac can be identified at this time.
[2025-01-07 19:15] VITALS: BP 106/56; PULSE 84; RESP 14; TEMP 36.4; O2SAT 100
[2025-01-07 19:30] LABS: Basophils % 0.6 %; Eosinophils # 0.2 10^3/uL (0.0-0.8); Eosinophils % 3.3 %; Hematocrit 40.2 % (36-47); Lymphocytes # 1.9 10^3/uL (1.5-6.5); Lymphocytes % 36.5 %; Mean Corpuscular HGB Conc 32.1 g/dL (30-55); Mean Corpuscular Hemoglobin 30.1 pg (27-33); Mean Corpuscular Volume 93.7 fl (85-98); Mean Platelet Volume 9.2 fL (7.4-10.4); Monocytes % 18.4 %; Neutrophils # 2.15 10^3/uL (1.8-8.0); Nucleated Red Blood Cells % 0 %; Platelet Count 311 10^3/cmm (157-399); Red Blood Count 4.29 10^6/uL (3.85-5.65); Red Cell Distribution Width 12.6 % (12.1-15.1); White Blood Count 5.23 10^3/uL (4.5-13.0)
[2025-01-07 19:55] LABS: HCG Quantitative 21.72 mIU/mL
[2025-01-07 20:29] VITALS: BP 109/62; BP 111/77; BP 113/69; PULSE 76; PULSE 87; PULSE 91
[2025-01-07 20:30] VITALS: BP 113/69; PULSE 91; O2SAT 97
--- NOTE | 2025-01-07 20:59 | ED_ITS ---
HPI - 2 General: Chief complaint: Vaginal Bleeding Stated complaint: severe bleeding believes miscarry. dizzy, weak Time Seen by Provider: 01/07/25 20:10 History of Present Illness: This patient is a 19-year-old white female who presents to the emergency department with vaginal bleeding. She states has been somewhat heavy today. She states that she was diagnosed as having a miscarriage by her procurement officer. She was given a RhoGAM injection. She came in to the emergency department concerned about the amount of bleeding. She states she has felt somewhat lightheaded. No chest pain or shortness of breath. No weakness. Related Data : 2 Home Medications ?Medication ?Instructions ?Recorded ?Confirmed albuterol sulfate 90 mcg/actuation 2 puff inhalation Q 4H PRN 02/07/22 01/06/25 aerosol inhaler (ProAir HFA) Shortness Of Breath mv-mn no.97-folic 180 mcg-dha 25 1 tab PO DAILY 01/06/25 mg-herb no.293 25 mg chewable tablet (Alive Daily Support ) ibuprofen 800 mg tablet 800 mg PO ONCE PRN 08/13/24 01/06/25 Previous Rx's ?Medication ?Instructions ?Recorded citalopram 20 mg tablet 20 mg PO DAILY #30 tabs 04/21 aripiprazole 15 mg tablet (Abilify) 7.5 mg (1/2 x 15 m g) PO BEDTIME 10/01/24 #60 tabs methocarbamol 750 mg tablet 750 mg PO Q6H PRN spasms # 20 tabs 10/01/24 Allergies Allergy/AdvReac Type Severity Reaction Status Date / Time Sulfa (Sulfonamide Allergy ALGY-Hives Verified 01/07/25 19:19 Antibiotics) Review of Systems 2 General: Reports: 10 or more systems reviewed and unremarkable except in HPI and below : Reports: vaginal bleeding PFSH ED 2 PFSH: Medical History Vaginal delivery Active labor at term Vapes nicotine containing substance Migraine without aura Anxiety and depression No pertinent past medical history neghx: htn,dm,thyroid,dvt/pe PCP: [facility] Allergic rhinitis due to allergen Psychiatric care Surgical History History of tonsillectomy and adenoidectomy as a child History of placement of ear tubes as a child Family History Grandfather Diabetes Maternal Hypertension Maternal Denies family history of Colon cancer Ovarian cancer Heart disease Hypercholesteremia Breast cancer Uterine cancer Thyroid disease Stroke Social History Smoking and tobacco/nicotine status: current every day tobacco/nicotine user Female Reproductive History: : 2 Physical Exam 2 Const: COMMON NORMALS: no acute distress, patient oriented x3 and no limitations GENERAL APPEARANCE: cooperative and comfortable HENMT: COMMON NORMALS: normocephalic, atraumatic, Normal nasal mucous membranes and turbinates present, moist oral mucous membranes and oropharynx normal HEAD & SCALP: normal to inspection, normocephalic and atraumatic F LASHA & SINUS: normal facial exam NOSE: Normal nasal mucous membranes and turbinates present Eye: COMMON NORMALS: Equal, round and reactive pupils present, EOMs intact bilaterally and conjunctivae normal GENERAL EYE: appearance normal, both eyes and all related structures CONJUNCTIVA: Yes conjunctivae normal PUPIL: Yes Equal, round and reactive pupils present Neck/C-Spine: COMMON NORMALS: supple and no JVD Chest: COMMONS NORMALS: normal inspection of the chest Resp: COMMON NORMALS: normal respiratory effort and clear to auscultation bilaterally AUSCULTATION: clear to auscultation bilaterally Cardio: COMMON NORMALS: no JVD, regular rate, regular rhythm, No gallops present (Cardio), No murmurs present (Cardio) and No rub (Cardio) RATE: r egular rate RHYTHM: regular rhythm GI: COMMON NORMALS: Normal to inspection, nondistended, normoactive bowel sounds present, Soft to palpation and non-tender AUSCULTATION: Yes normoactive bowel sounds PALPATION: Yes Soft to palpation : COMMON NORMALS: Yes no CVA tenderness BLADDER/KIDNEY EXAM: Yes no CVA tenderness Back/Pelvis: COMMON NORMALS: no CVA tenderness and thoracic and lumbar spine normal to inspection Extremity: COMMON NORMALS: normal to inspection Neuro: COMMON NORMALS: patient oriented x3 and CN's II-XII intact bilaterally Psych: COMMON NORMALS: mental status grossly normal, Normal thought process present and cooperative THOUGHT PROCESS: Normal thought process present Skin: COMMON NORMALS: no rashes or lesions noted, turgor normal and no jaundice GENERAL SKIN EXAM: no rashes or lesions noted and turgor normal Course 2 Vital Signs: Vital signs: Vital Signs Temperature 97.6 F 01/07/25 19:15 Pulse Rate 91 01/07/25 20:30 Respiratory Rate 14 01/07/25 19:15 Blood Pressure 113/69 01/07/25 20:30 Pulse Oximetry 97 01/07/25 20:30 Oxygen Delivery Me thod Room Air 01/07/25 19:15 MDM - OB/Uterine Contractions Medical Decision Making CBC was normal, hemoglobin 12.9. Quantitative hCG 21.7. Orthostatic vitals were normal. Pelvic ultrasound was read by the radiologist. There is no gestational sac. Results were discussed with the patient. Patient is Rh- and she was already given a RhoGAM injection by her procurement officer. She states the bleeding and cramping are starting to resolve. I recommended she return to the emergency department if she feels like she is bleeding too much or if she is developing severe lightheadedness or weakness. Otherwise follow-up with primary care provider and/or procurement officer as needed. She was discharged in stable condition. Lab Data 01/07/25 19:08 Radiology Impressions Ultrasound 01/07/25 18:50 IMPRESSION: No definitive intrauterine gestational sac can be identified at this time. Laboratory Results WBC 5.23 10^3/uL (4.5-13.0) 01/07/25 19:08 RBC 4.29 10^6/uL (3.85-5.65) 01/07/25 19:08 Hgb 12.90 g/dL (12.4-14.8) 01/07/25 19:08 Hct 40.2 % (36-47) 01/07/25 19:08 MCV 93.7 fl (85-98) 01/07/25 19:08 MCH 30.1 pg (27-33) 01/07/25 19:08 MCHC 32.1 g/dL (30-55) 01/07/25 19:08 RDW 12.6 % (12.1-15.1) 01/07/25 19:08 Plt Count 311 10^3/cmm (157-399) 01/07/25 19:08 MPV 9.2 fL (7.4-10.4) 01/07/25 19:08 Neut % (Auto) 41.0 % 01/07/25 19:08 Lymph % (Auto) 36.5 % 01/07/25 19:08 [place] % (Auto) 18.4 % 01/07/25 19:08 Eos % (Auto) 3.3 % 01/07/25 19:08 Baso % (Auto) 0.6 % 01/07/25 19:08 Neut # (Auto) 2.15 10^3/uL (1.8-8.0) 01/07/25 19:08 Lymph # (Auto) 1.9 10^3/uL (1.5-6.5) 01/07/25 19:08 [place] # (Auto) 1.0 10^3/uL (0.2-0.9) H 01/07/25 19:08 Eos # (Auto) 0.2 10^3/uL (0.0-0.8) 01/07/25 19:08 Baso # (Auto) 0.0 10^3/uL (0.0-0.1) 01/07/25 19:08 Nucleated RBC % (auto) 0 % 01/07/25 19:08 Nucleated RBCs # 0.0 /100WBC 01/07/25 19:08 Ser , Semi-Qnt 21.72 mIU/mL 01/07/25 19:08 Blood Type O Negative 01/07/25 19:08 Rho(D) Type Rh negative 01/07/25 19:08 All radiology interpretation(s) finalized by discharge Discharge Plan Discharge Patient Disposition: Home Clinical Impression: Miscarriage Condition: Stable Prescriptions: No Action Alive Daily Support 180 mcg-25 mg- 25 mg tablet,chewable 1 tab PO DAILY ibuprofen 800 mg tablet 800 mg PO ONCE PRN citalopram 20 mg tablet 20 mg PO DAILY Qty: 30 3RF Rx Instructions: take one tab daily aripiprazole [Abilify] 15 mg tablet 7.5 mg PO BEDTIME Qty: 60 0RF albuterol sulfate [ProAir HFA] 90 mcg/actuation HFA aerosol inhaler 2 puff INHALATION Q4H PRN (Reason: Shortness Of Breath) methocarbamol 750 mg tablet 750 mg PO Q6H PRN (Reason: spasms) Qty: 20 0RF Discharge Orders: Discharge ED (Routine); Ordered 01/07/25 Ordered By: Krystian Alanis Referrals: Natalie Boudreaux DO [Primary Care Provider] - Patient Instructions: Miscarriage (ED) Activity Restrictions/Additional Instructions: If you feel like you are bleeding too much to the point where you are lightheaded or feel weak return to the emergency department. Otherwise follow- up with your primary care provider and/or your procurement officer as needed. Print Language: Sami Coding Level of Care Code ED Leadership Recruiter for Hollie Magdaleno
[2025-01-07 21:28] VITALS: BP 117/69; PULSE 75; O2SAT 100
== END 2025-01-07 21:02 | disposition home or self-care (01) ==
PROVIDERS: Emergency Medicine; Emergency Provider Emergency Medicine; PCP Family Medicine
DX: O03.9 Complete or unspecified spontaneous abortion without complication (principal); Z72.0 Tobacco use
CPT/HCPCS: 36415; 76801; 80503; 84702; 85025; 86850; 86870; 86900; 99284

== ENCOUNTER → 2025-01-13 13:08 | Outpatient (BNVA) | payer OTHER, MEDICAID, SELFPAY | PROVIDERS: PCP Family Medicine; Visit Provider Nurse Practitioner Women's Health | DX: O03.9 Complete or unspecified spontaneous abortion without complication (principal) | CPT/HCPCS: 84702 ==

== ENCOUNTER → 2025-02-01 18:28 | Outpatient (BNVA) | payer MEDICAID, SELFPAY | PROVIDERS: PCP Family Medicine; Visit Provider Emergency Medicine | DX: Z34.90 Encounter for supervision of normal pregnancy, unspecified, unspecified trimester (principal); R30.0 Dysuria | CPT/HCPCS: 81000; 81025 ==

== ENCOUNTER 2025-04-17 13:47 | Emergency (ER) | payer MEDICAID, SELFPAY ==
[2025-04-17 14:08] VITALS: BP 96/61; PULSE 76; RESP 16; TEMP 36.7; O2SAT 99
[2025-04-17 14:29] LABS: Basophils % 0.4 %; Eosinophils # 0.1 10^3/uL (0.0-0.8); Eosinophils % 0.7 %; Hematocrit 35.1 % (36-47); Lymphocytes # 2.5 10^3/uL (1.5-6.5); Mean Corpuscular HGB Conc 34.8 g/dL (30-55); Mean Corpuscular Hemoglobin 30.1 pg (27-33); Mean Corpuscular Volume 86.7 fl (85-98); Mean Platelet Volume 8.8 fL (7.4-10.4); Monocytes # 0.8 10^3/uL (0.2-0.9); Monocytes % 8.3 %; Neutrophils # 5.64 10^3/uL (1.8-8.0); Neutrophils % 62.4 %; Nucleated Red Blood Cells % 0 %; Platelet Count 300 10^3/cmm (157-399); Red Blood Count 4.05 10^6/uL (3.85-5.65); Red Cell Distribution Width 11.7 % (12.1-15.1); White Blood Count 9.04 10^3/uL (4.5-13.0)
[2025-04-17 14:38] LABS: Bilirubin Urine Negative (Negative); Blood Urine Negative (Negative); Glucose Urine UA Negative (Normal); Ketones Urine Negative (Negative); Leukocyte Esterase Urine 1+ (Negative); Nitrate Urine Negative (Negative); Protein Urine 1+ (Negative); Urine Appearance Clear (CLEAR); Urine Color Yellow (Yellow); pH Urine 6.5 (5-7)
[2025-04-17 14:40] LABS: Add Urine Microscopic? YES; Bacteria Urine 3+ /hpf; Hyaline Casts Urine 2.05 /lpf; RBC Urine 0-2 /hpf (0-2)
[2025-04-17 14:49] LABS: Add Urine Culture? Yes
[2025-04-17 14:53] LABS: Alanine Aminotransferase 9 U/L (0-33); Albumin Level 4.2 g/dL (3.5-5.2); Alkaline Phosphatase 56 U/L (35-105); Anion Gap 15.8 (5-19); Aspartate Amino Transferase 13 U/L (0-32); Blood Urea Nitrogen 9 mg/dL (6-20); Calcium 9.2 mg/dL (8.5-10.5); Carbon Dioxide 22 mmol/L (22-29); Chloride 101 mmol/L (98-107); Creatinine Clr Calc Pharmacy 111.8411; Globulin 2.6 g/dL (1.3-4.6); Glomerular Filtration Rate 127.5 mL/min (90-130); Glucose 73 mg/dL (65-115); Osmolality Calculated 277 mOsm/kg (285-295); Potassium 3.8 mmol/L (3.5-5.1); Sodium 135 mmol/L (136-145); Total Bilirubin 0.6 mg/dL (0.15-1.2); Total Protein 6.8 g/dL (6.6-8.7)
[2025-04-17 14:54] VITALS: BP 95/55; PULSE 63; RESP 14; O2SAT 100
--- NOTE | 2025-04-17 15:32 | W.ED.PREGNAN ---
HPI - General: Chief complaint: OB/Uterine Contractions Stated complaint: 6 wk preg cramping, dizzy Time Seen by Provider: 04/17/25 13:52 History of Present Illness: 19-year-old female patient is G3, P1 Ab1 presents at approximately 6 weeks she is having some cramping. Her previous miscarriage was about 4 months ago she has an initial OB appointment at the end of this month with Dr. Chong. She has cramping she denies dysuria urgency or frequency has no vaginal bleeding or discharge. Associated symptoms: Deny abdominal pain or dysuria Related Data Home Medications ?Medication ?Instructions ?Recorded ?Confirmed albuterol sulfate 90 mcg/actuation 2 puff inhalation Q4H PRN 02/07/22 02/01/25 aerosol inhaler (ProAir HFA) Shortness Of Breath mv-mn no.97-folic 180 mcg-dha 25 1 tab PO DAILY 07/16/23 02/01/25 mg-herb no.293 25 mg chewable tablet (Alive Daily Support ) ibuprofen 800 mg tablet 800 mg PO ONCE PRN 08/13/24 02/01/25 Previous Rx's ?Medication ?Instructions ?Recorded citalopram 20 mg tablet 20 mg PO DAILY #30 tabs 09/03/24 aripiprazole 15 mg tablet (Abilify) 7.5 mg (1/2 x 15 mg) PO BEDTIME 10/01/24 #60 tabs methocarbamol 750 mg tablet 750 mg PO Q6H PRN spasms #20 tabs 10/01/24 cefdinir 300 mg capsule 300 mg PO BID 10 days #20 caps 02/01/25 Allergies Allergy/AdvReac Type Severity Reaction Status Date / Time Sulfa (Sulfonamide Allergy ALGY-Hives Verified 02/01/25 18:27 Antibiotics) Review of Systems Const: Denies: fever(s) or chills Card: Denies: chest pain Resp: Denies: dyspnea GI: Denies: abdominal pain : Denies: dysuria, urinary frequency or urinary urgency Musc: Denies: neck pain or back pain Skin/Breast: Denies: rash PFSH ED PFSH: Medical History Vaginal delivery Active labor at term Vapes nicotine containing substance Migraine without aura Anxiety and depression No pertinent past medical history neghx: htn,dm,thyroid,dvt/pe PCP: [facility] Allergic rhinitis due to allergen Psychiatric care Surgical History History of tonsillectomy and adenoidectomy as a child History of placement of ear tubes as a child Family History Grandfather Diabetes Maternal Hypertension Maternal Denies family history of Colon cancer Ovarian cancer Heart disease Hypercholesteremia Breast cancer Uterine cancer Thyroid disease Stroke Social History Smoking and tobacco/nicotine status: never used tobacco/nicotine Physical Exam Const: COMMON NORMALS: no acute distress GENERAL APPEARANCE: cooperative and comfortable ORIENTATION/CONSCIOUSNESS: Yes awake, Yes oriented to person, Yes oriented to place and Yes oriented to time HENMT: COMMON NORMALS: normocephalic, atraumatic and hearing grossly normal bilaterally HEAD & SCALP: normocephalic and atraumatic Resp: COMMON NORMALS: normal respiratory effort, No retractions, No use of accessory muscles and clear to auscultation bilaterally AUSCULTATION: clear to auscultation bilaterally Cardio: COMMON NORMALS: regular rate, regular rhythm and No murmurs present (Cardio) RATE: regular rate RHYTHM: regular rhythm GI: COMMON NORMALS: Soft to palpation and No hepatosplenomegaly present AUSCULTATION: Yes normoactive bowel sounds PALPATION: Yes Soft to palpation, No Tenderness to palpation present (GI), No Guarding due to palpation present (GI) and Yes No hepatosplenomegaly present Extremity: COMMON NORMALS: normal to inspection, capillary refill normal, no clubbing, cyanosis or edema, no calf tenderness and no pedal edema Neuro: SENSORIUM/ORIENTATION: Yes oriented to person, Yes oriented to place and Yes oriented to time Skin: COMMON NORMALS: no rashes or lesions noted GENERAL SKIN EXAM: no rashes or lesions noted Course Vital Signs: Vital signs: Vital Signs Temperature 98.1 F 04/17/25 14:08 Pulse Rate 75 04/17/25 16:45 Respiratory Rate 14 04/17/25 14:54 Blood Pressure 95/50 04/17/25 16:45 Pulse Oximetry 100 04/17/25 16:45 Oxygen Delivery Me thod Room Air 04/17/25 14:54 MDM - OB/Uterine Contractions Medical Decision Making Beta-hCG low for high for current gestational age. Patient has no pain at this time. No cramping has not had any bleeding. Will discharge patient home and have her follow-up with her primary OB. Return if she has any worsening of symptoms or develops severe pain or bleeding. Medical Records I reviewed the patient's medical records. Lab Data I reviewed the patient's lab results. 04/17/25 14:21 04/17/25 14:21 Laboratory Results WBC 9.04 10^3/uL (4.5-13.0) 04/17/25 14:21 RBC 4.05 10^6/uL (3.85-5.65) 04/17/25 14:21 Hgb 12.20 g/dL (12.4-14.8) L 04/17/25 14:21 Hct 35.1 % (36-47) L 04/17/25 14:21 MCV 86.7 fl (85-98) 04/17/25 14:21 MCH 30.1 pg (27-33) 04/17/25 14:21 MCHC 34.8 g/dL (30-55) 04/17/25 14:21 RDW 11.7 % (12.1-15.1) L 04/17/25 14:21 Plt Count 300 10^3/cmm (157-399) 04/17/25 14:21 MPV 8.8 fL (7.4-10.4) 04/17/25 14:21 Neut % (Auto) 62.4 % 04/17/25 14:21 Lymph % (Auto) 28.0 % 04/17/25 14:21 Vermilion % (Auto) 8.3 % 04/17/25 14:21 Eos % (Auto) 0.7 % 04/17/25 14:21 Baso % (Auto) 0.4 % 04/17/25 14:21 Neut # (Auto) 5.64 10^3/uL (1.8-8.0) 04/17/25 14:21 Lymph # (Auto) 2.5 10^3/uL (1.5-6.5) 04/17/25 14:21 Vermilion # (Auto) 0.8 10^3/uL (0.2-0.9) 04/17/25 14:21 Eos # (Auto) 0.1 10^3/uL (0.0-0.8) 04/17/25 14:21 Baso # (Auto) 0.0 10^3/uL (0.0-0.1) 04/17/25 14:21 Nucleated RBC % (auto) 0 % 04/17/25 14:21 Nucleated RBCs # 0.0 /100WBC 04/17/25 14:21 Sodium 135 mmol/L (136-145) L 04/17/25 14:21 Potassium 3.8 mmol/L (3.5-5.1) 04/17/25 14:21 Chloride 101 mmol/L (98-107) 04/17/25 14:21 Carbon Dioxide 22 mmol/L (22-29) 04/17/25 14:21 Anion Gap 15.8 (5-19) 04/17/25 14:21 BUN 9 mg/dL (6-20) 04/17/25 14:21 Creatinine 0.6 mg/dL (0.5-0.9) 04/17/25 14:21 GFR Calculation 127.5 mL/min (90-130) 04/17/25 14:21 Glucose 73 mg/dL (65-115) 04/17/25 14:21 Calculated Osmolality 277 mOsm/kg (285-295) L 04/17/25 14:21 Calcium 9.2 mg/dL (8.5-10.5) 04/17/25 14:21 Total Bilirubin 0.6 mg/dL (0.15-1.2) 04/17/25 14:21 AST 13 U/L (0-32) 04/17/25 14:21 ALT 9 U/L (0-33) 04/17/25 14:21 Alkaline Phosphatase 56 U/L (35-105) 04/17/25 14:21 Total Protein 6.8 g/dL (6.6-8.7) 04/17/25 14:21 Albumin 4.2 g/dL (3.5-5.2) 04/17/25 14:21 Globulin 2.6 g/dL (1.3-4.6) 04/17/25 14:21 Ser , Semi-Qnt 59845.00 mIU/mL 04/17/25 14:21 Urine Color Yellow (Yellow) 04/17/25 14:26 Urine Appearance Clear (CLEAR) 04/17/25 14:26 Urine pH 6.5 (5-7) 04/17/25 14:26 Ur Specific Adams 1.020 (1.005-1.030) 04/17/25 14:26 Urine Protein 1+ (Negative) A 04/17/25 14:26 Urine Glucose (UA) Negative (Normal) 04/17/25 14: Urine Ketones Negative (Negative) 04/17/25 14:26 Urine Blood Negative (Negative) 04/17/25 14: Urine Nitrate Negative (Negative) 04/17/25 14: Urine Bilirubin Negative (Negative) 04/17/25 14: Urine Urobilinogen 1.0 mg/dL (Negative) 04/17/25 14:26 Ur Leukocyte Esterase 1+ (Negative) A 04/17/25 14:26 Urine RBC 0-2 /hpf (0-2) 04/17/25 14:26 Urine WBC 6-10 /hpf (0-5) 04/17/25 14:26 Ur Squamous Epith Cells 11-20 /hpf (0-5) H 04/17/25 14:26 Amorphous Sediment Not Reportable 04/17/25 14:26 Urine Bacteria 3+ /hpf (NONE) H 04/17/25 14:26 Hyaline Casts 2.05 /lpf 04/17/25 14:26 No radiology studies performed this visit Discharge Plan Discharge Patient Disposition: Home Clinical Impression: with suprapubic cramping, antepartum, First trimester Condition: Stable Prescriptions: No Action cefdinir 300 mg capsule 300 mg PO BID 10 Days Qty: 20 0RF Alive Daily Support 180 mcg-25 mg- 25 mg tablet,chewable 1 tab PO DAILY ibuprofen 800 mg tablet 800 mg PO ONCE PRN citalopram 20 mg tablet 20 mg PO DAILY Qty: 30 3RF Rx Instructions: take one tab daily aripiprazole [Abilify] 15 mg tablet 7.5 mg PO BEDTIME Qty: 60 0RF albuterol sulfate [ProAir HFA] 90 mcg/actuation HFA aerosol inhaler 2 puff INHALATION Q4H PRN (Reason: Shortness Of Breath) methocarbamol 750 mg tablet 750 mg PO Q6H PRN (Reason: spasms) Qty: 20 0RF Discharge Orders: Discharge ED (Routine); Ordered 04/17/25 Ordered By: Margarito Harding Referrals: Natalie Boudreaux DO [Primary Care Provider, [employer] TECH[employer]QUES DEMONSTRATOR] Discharge Diet: Usual diet Discharge Activity: Resume usual activity Patient Instructions: Abdominal Pain (ED), Opioid Safety, Pain Management Activity Restrictions/Additional Instructions: Thank you for choosing [facility] for your healthcare needs today. It is very important that you follow up as instructed or that you return to the Emergency Department should you have concerns or if your condition changes or worsens in any way. You were seen in the emergency room with cramping related to your . Does not show any vaginal bleeding or discharge this can just be observed for now. Your beta-hCG is slightly elevated that is this can indicate you are further along the new had thought. Recommend that you follow-up with your SEWING TECHNIQUES DEMONSTRATOR as scheduled if you have any worsening pain or develop any bleeding or severe pain return to the emergency room immediately. Stand Alone Forms: Work/School Release Print Language: Hungarian Coding Level of Care Code ED Bag End Sewer for Hollie Magdaleno
[2025-04-17 16:45] VITALS: BP 95/50; PULSE 75; O2SAT 100
== END 2025-04-17 16:50 | disposition home or self-care (01) ==
PROVIDERS: Emergency Provider Family Medicine; PCP Family Medicine
DX: O26.891 Other specified pregnancy related conditions, first trimester (principal); Z3A.01 Less than 8 weeks gestation of pregnancy; R10.9 Unspecified abdominal pain
CPT/HCPCS: 36415; 80053; 81001; 84702; 85025; 87086; 99283

== ENCOUNTER → 2025-04-27 12:16 | Outpatient (BNVA) | payer MEDICAID, SELFPAY | PROVIDERS: PCP Family Medicine; Visit Provider Nurse Practitioner Women's Health | DX: Z32.01 Encounter for pregnancy test, result positive (principal) | CPT/HCPCS: 84702; 86850; 86900 ==

== ENCOUNTER → 2025-04-29 08:40 | Outpatient (BNVA) | payer MEDICAID, SELFPAY | PROVIDERS: PCP Family Medicine; Visit Provider Nurse Practitioner Women's Health | DX: O20.8 Other hemorrhage in early pregnancy (principal); Z3A.08 8 weeks gestation of pregnancy | CPT/HCPCS: 76801 ==

== ENCOUNTER 2025-05-07 19:46 | Emergency (ER) | payer MEDICAID, SELFPAY ==
[2025-05-07 19:47] VITALS: BP 102/63; PULSE 107; RESP 16; TEMP 36.4; O2SAT 97; BMI 19.8
--- OUTSIDE RECORDS SUMMARY | 2025-05-07 19:53 | XMS_ITS | Data Portability ---
Author Organization [place] - Luis Fernando [facility]ginboth[facility], [place], [facility] Address [address] [place] [address] Assessment No assessment recorded. Plan of Treatment Reminders Order Date Submit Date Provider Last Modified By Organization Details Last Modified Time Details Appointments None recorded. Lab rapid flu (A+B), PCR 2024 025 [id number] [facility] ([facility]), [address] [place] [address], [phone], 13:50:55 Referral None recorded. Procedures None recorded. Surgeries None recorded. Imaging None recorded. Medication Orders oseltamivir 75 mg capsule 2024 025 [facility], [address], [place], [address], 13:23:12 Patient TargetsNo targets recorded. Patient InstructionsNo instructions recorded. Reason for Referral None Reported. Results Created Date Observation Date Name Description Value Unit Range Abnormal Flag Note LastModifiedBy Organization Detail LastModifiedTime 11/28/1911/28/2024 rapid flu (A+B) , PCR Influenza A positi ve Not Available [facility] ([facility]) [address] [place], [address], 11/28/2024 13:04:53 11/28/19 25 11/28/2024 rapid flu (A+B) , PCR Influenza B negati ve Not Available [facility] ([facility]) [address] [place], [address], 11/28/2024 13:04:53 Result Notes None recorded. Problems Name Problem SNOMED Code Status Onset Date Resolution Date Notes Provider Name and Address Organization Details Recorded Time Asthma 266039516 Active 005 asthma; 09/06/20 05 2:09PM by Sandra Bassett CMT, Office Visit; Promoted ; acuity set as *; Not Available [facility] 3 03:10:24 Problem Notes None recorded. Procedures Surgical History Date Name Laterality Status Provider Name and Address Organization Details Recorded Time tonsilectom y/adenoids completed [facility] 11/28/2024 13:07:30 Ear Tube completed [facility] 11/28/2024 13:07:35 Imaging Results None recorded. Procedure Notes None recorded. Medical Equipment None Reported. Allergies Allergen ID Allergen Name Allergen Category Reaction Reaction Severity Criticality Documentation Date Start Date Code Code System Note Provider Name and Address Organization Details Recorded Time 20790 Substance with sulfonami de structure and antibacte rial mechanism of action (substanc e) medicatio n Not available Not available Not available 11/28/2024 27698 8003 SNOMED [facility] 5 13:06:50 Medications Name Sig Start Date Stop Date Status Note LastModified by Organization Details LastModified Time fluconazo le 150 mg tablet TAKE 1 TABLET BY MOUTH EVERY 3 DAYS FOR 2 DOSES. MAY REPEAT SECOND DOSE 72 HOURS AFTER FIRST DOSE IF SYMPTOMS PERSIST 11/28 completed Not Available Not Available Not Available ampicilli n 500 mg capsule TAKE 1 CAPSULE BY MOUTH THREE TIMES DAILY FOR 7 DAYS 11/28 completed Not Available Not Available Not Available prednison e 20 mg tablet TAKE 3 TABLETS BY MOUTH ONCE DAILY FOR 5 DAYS 11/28 completed Not Available Not Available Not Available ondansetr on 8 mg disintegr ating tablet DISSOLVE 1 TABLET IN MOUTH EVERY 8 HOURS NEEDED FOR NAUSEA AND VOMITING FOR 5 DAYS 11/28 completed Not Available Not Available Not Available methocarb karen 750 mg tablet TAKE 1 TABLET BY MOUTH EVERY 6 HOURS NEEDED FOR MUSCLE SPASM 11/28 completed Not Available Not Available Not Available oseltamiv ir 75 mg capsule Take 1 capsule twice a day by oral route for 5 days. 2024 active Not Available Not Available Not Avai lable nitrofura ntoin macrocrys feli 100 mg capsule TAKE 1 CAPSULE BY MOUTH TWICE DAILY 11/28 completed Not Available Not Available Not Available sertralin e 25 mg tablet Take 1 Tablet (25 mg) by mouth daily. active Not Available Not Available No t Available naproxen 500 mg tablet TAKE 1 TABLET BY MOUTH TWICE DAILY NEEDED FOR PAIN STOP FOR STOMACH PAIN 11/28 completed Not Available Not Available Not Available azithromy dinorah 500 mg tablet TAKE 1 TABLET BY MOUTH ONCE DAILY FOR 5 DAYS 11/28 completed Not Available Not Available Not Available Zymine 1.25 mg/5 mL oral syrup Q 4hr/PRN 2004 active Recorded 09/06/20 05 2:09PM by SUDHA Verma, , Office Visit; Not Available Not Available Not Available methocarb karen active Not Available Not Available Not Available Abilify active Not Available Not Avail able Not Available Flonase Allergy Relief active Not Available Not Available Not Available M- Plus 27 mg iron-1 mg tablet TAKE 1 TABLET BY MOUTH ONCE DAILY 11/28 completed Not Available Not Available Not Available Vitals Date Recorded Body weight Body mass index (BMI) Body mass index (BMI) [Percentile] Per age and sex Body height Heart rate Respiratory rate Body temperature Systolic And Diastolic Provider Name and Address Organization Details Last Updated DateTime 5 44956.2 4 g 18.9 kg/m2 14 % 154.94 cm 94 /min 18 /min 98.3 [degF] 122/66 mm[Hg] Maribel Romero [facility] 5 13:09:19 Social History None recorded. Functional Status None recorded. Mental Status None recorded. Family History Nothing Reported. Medical History No medical history recorded. Gynecological HistoryNo gynecological history recorded. Obstetrics History GPAL:G 0 P 0 0 0 0 Past Encounters Encounter ID Performer Location Encounter Start Date Encounter Closed Date Diagnosis/Indication Diagnosis SNOMED-CT Code Diagnosis ICD10 Code Diagnosis Note [id number] SUDHA GU [facility] [address] [place] [address] 11/28/2024 12:59:18 11/28/2024 13:30:09 Fever 467801995 R50.9 Influenza caused by Influenza A virus 928984551 J09.X2 Increase po fluids. Rest. May use otc meds as needed for symptoms. Return to clinic with any new or worsening symptoms. Health Concerns Section Related Observation LastModified by Organization Detai ls LastModified Time None Recorded Concern Status LastModified by Organization Details LastModified Time None Recorded Advance Directives Directive None Recorded Payers Insurance Date Sequence Insurance Name Policy Number Policy Tobin Covered Member ID Tobin Member ID Guarantor Name 01/14/2025 [facility] (MEDICAID HMO) Lillyanna E Ingramhenke [id number] Lillyanna E Reynolds 01/14/2025 1 [facility] (MEDICAID HM) Lillyanna E Reynolds [id number] Lillyanna E Reynolds 01/14/2025 1 [facility] [id number] Lillyanna E Reynolds [id number] Lillyanna E Reynolds 12/30/2024 1 [employer] Lillyanna E Reynolds [id number] Lillyanna E Reynolds 12/29/2024 2 [place] Lillyanna E Reynolds [id number] Lillyanna E Reynolds 12/29/2024 2 [employer] Lillyanna E Reynolds [id number] Lillyanna E Reynolds Notes Date Note Type Note Provider Name and Address Organization Details Recorded Time 11/28/2024 text/html walk in patientpatient is here today for cough, congestion, headache, neck pain, body aches that started this morning when she woke up SUDHA GU [address] [place], [address], [facility] Luis Fernando [facility], [place] 11/28/2024 13:23:21 OBGyn Episode No OBEpisode recorded.
--- OUTSIDE RECORDS SUMMARY | 2025-05-07 19:53 | XMS_ITS | Clinical Summary ---
Author Organization [facility] Address [address] Gannonn: [place] [address] Care Team Providers Care Music Journalist Name Role Phone Unavailable Primary Care Provider Unavailabl e Allergies Active Allergy Reactions Criticality Noted Date Comments Sulfa (Sulfonamide Antibiotics) Hives High 09/29 Sulfur Rash Medium 12/05/2015 Medications ketotifen (Alaway) 0.025% solutionIndication s:Allergic conjunctivitis of both eyes Administer 1 Drop in both eyes 2 times daily. 15 mL 11 3 Active fluticasone propionate (FLONASE) 50 mcg/spray Edon, Suspension nasal inhaler Administer 1 Edon in each nostril 2 times daily. 3 Active PNV,calcium 29-fzie-arzoq acid ( Plus, calcium carb,) 27 mg iron- 1 mg TabletIndications: Encounter for preconception consultation Take 1 Tablet by mouth daily. 30 Tablet 11 3 Active sertraline (ZOLOFT) 25 mg tabletIndications: Mild episode of recurrent major depressive disorder Take 1 Tablet (25 mg) by mouth daily. 30 Tablet 5 4 Active Active Problems Problem Noted Date Diagnosed Date Intractable migraine with aura with status migra inosus 05/07/2023 Exercise-induced asthma 03/01/2023 Eczema 03/01/2023 Depression, major, recurrent 12/29/2019 Overview (01/17/2023): Last Assessment & Plan: Chronic in nature. [facility]. Continue follow-up with psychiatry and counseling. Continue current medications until evaluated per Psychiatry. Generalized anxiety disorder 12/29/2019 Comments Yes Resolved Problems Problem Noted Date Diagnosed Date Resolved Date Other half-way (current) drug therapy 05/02/2023 11/28/2023 Situational depression 03/01/202303/13 History of anemia 03/01/2023 03/13/2023 Influenza-like syndrome 01/17/2023 07/0 02/2023 Immunizations Immunization Administration Dates Next Due (ADACEL/BOOSTRIX)(10 YR UP) TDAP VACCINE, 0.5ML, IM 06/10/2018 (GARDASIL 9)(9-45 YRS) HUMAN PAPILLOMAVIRUS VACCINE, TYPES 6, 11, 16, 18, 31, 33, 45, 52, 58, NONAVALENT (9VHPV), 2 OR 3 DOSE, IM 12/29/2019 (IPOL)(6 WKS AND UP) POLIOVI TEA VACCINE, INACTIVATED (IPV), 3 DOSE, SUBCUT OR IM 12/31/2008 (M-M-R II/PRIORIX)(12 MO UP) MEASLES, MUMPS AND RUBELLA VIRUS VACCINE, 0.5 ML IM/SUBCUT 12/31/2008,10/16/2005 (PENTACEL)(6 WKS-4 YRS) DIPH THERIA, TETANUS TOXOIDS, ACELLULAR PERTUSSIS, HAEMOPHILUS INFLUENZAE TYPE B, AND INACTIVATED POLIOVIRUS (DTAP-IPV/HIB) IM 01/05/2005,2004,2004 (VARIVAX)(12 MOS UP)VARICELL A VIRUS VACCINE (PF) 0.5 ML, SUB CUT 12/31/2008,10/16/2005 Hepatitis B Vaccine, Unspeci fied Formulation 01/05/2005,2004,2004 Meningococcal ACWY Vaccine, Unspecified Formulation 06/10/2018 Family History Medical History Relation Name Comments Depression Mother Christina Relation Name Status Comments Father Hussain Alive Half-Brother 1 Stephane Alive Half-Brother 2 [place] Alive Half-Brother 3 Eamon Alive Half-Sister 1 Stormi Alive Half-Sister 2 Katt Alive Half-Sister 3 Alaney Alive Mother Christina Alive Social History Tobacco Use Types Packs/Day Years Used Date Smoking Tobacco: Never Passive Smoke Exposure: Never Smokeless Tobacco: Never Tobacco Cessation:Counseling Given: Yes Alcohol Use Standard Drinks/Week Comments No 0 (1 standard drink = 0.6 oz pur e alcohol) Adolescent Education Answer Date Record ed Getting School Help Needed Not on file 05/21 Feeling Safe Answer Date Recorded Are you in a relationship wi th someone who hurts you emotionally and/or physically? No 09/18/2023 Comments Yes Sex and Gender Information Value Date Recorded Sex Assigned at Female 05/31/2023 9:30 PM CDT Legal Sex Female 5:33 AM DIRECT MARKETING SPECIALIST Gender Identity Female 05/31/2023 9:30 PM CDT Sexual Orientation Straight 05/31/2023 9: 30 PM CDT Last Filed Vital Signs Vital Sign Reading Time Taken Comments Blood Pressure 114/62 11/28/2023 1:02 PM DIRECT MARKETING SPECIALIST Pulse 96 11/28/2023 1:02 PM DIRECT MARKETING SPECIALIST Temperature 36.6 C (97.9 F) 11/28/2023 1:02 PM DIRECT MARKETING SPECIALIST Respiratory Rate 18 09/18/2023 1:00 AM DIRECT MARKETING SPECIALIST Oxygen Saturation 98% 11/28/2023 1:02 PM DIRECT MARKETING SPECIALIST Inhaled Oxygen Concentration - - Weight 54.5 kg (120 lb 3.2 oz) 11/28/2023 1:02 P M DIRECT MARKETING SPECIALIST Height 154.9 cm (5' 1 ) 11/28/2023 1:02 PM DIRECT MARKETING SPECIALIST Body Mass Index 22.71 11/28/2023 1:02 PM DIRECT MARKETING SPECIALIST Plan of Treatment Health Maintenance Due Date Last Done Comments HPV VACCINES (2 - 3-dose series) 01/26/2020 12/29/19 CHLAMYDIA SCREENING (ANNUAL) 11-24 YEARS 04/25/2024 04/25/2023 INFLUENZA VACCINE (#1) 2025 07/18/2023, 2022 DTAP/TDAP/TD VACCINES (5 - T d or Tdap) 06/10/2028 06/10/2018, 01/05/2005, 2004, Additional history exists RSV VACCINE (60+ or ) (1 - 1-dose 75+ series) 2079 HEPATITIS B VACCINES Completed 01/05/2005, 2004, 2004 Procedures Procedure Name Priority Date/Time Associated Diagnosis Comments GC/CHLAMYDIA, UROGENITAL Routine 04/25/2023 2:01 PM CDT Encounter for screening for infections with a predominantly sexual mode of transmission from Last 3 Months or Most Recently Relevant to Health Maintenance Results * GC/CHLAMYDIA, UROGENITAL (04/25/2023 2:01 PM CDT) C TRAC RNA NOT DETECTED NOT DETECTED [facility] N.GONORRHOEAE RNA, TMA NOT DETECTED NOT DETECTED [facility] COMMENT INFECTIOUS DISEASE [facility] Comment: The analytical performance characteristics of this assay, when used to test SurePath(TM) specimens have been determined by [facility]. The modifications have not been cleared or approved by the FDA. This assay has been validated pursuant to the CLIA regulations and is used for clinical purposes. For additional information, please refer to https://education.Chosen.fm/faq/KKG515 (This link is being provided for information/ educational purposes only.) Test Performed at: [facility] [id number] [address] Katie Raines MD Urine (Urine, 1st catch) 04/25/2023 2:01 PM CDT 04/26/2023 6:48 AM CDT Jackelyn Narvaez NP MICROBIOLOGY - GENERAL ORDERABL ES Final Result [facility] [phone] [address] [place] [address] from Last 3 Months or Most Recently Relevant to Health Maintenance Insurance [employer] [facility] [employer] Member Subscriber Plan / Payer (Ef fective 2022-Present) Name:Josefina Fullerevita Lew Relation to Subscriber:Self Name:StacietracyMaya rodriguez Payer ID:Not on file Group ID:Not on file Type:Vision Address: [address] OPEN ACCESS HMO
--- OUTSIDE RECORDS SUMMARY | 2025-05-07 19:53 | XMS_ITS | Data Portability ---
Author Organization [address], ADMIN Address [address] [place] [address] Care Team Providers Care Volunteer Fire Fighter Name Role Phone SHARONDA VELASQUEZ Primary Care Provider [phone] Assessment No assessment recorded. Plan of Treatment Reminders Order Date Submit Date Provider Last Modified By Organization Details Last Modified Time Details Appointments None recorded. Lab None recorded. Referral gynecologis t referral 2022 023 PRINCE Hedrick MD, [address], [address], [place], [address], 3 15:55:40 Procedures None recorded. Surgeries None recorded. Imaging None recorded. Medication Orders None recorded. Patient TargetsNo targets recorded. Patient InstructionsNo instructions recorded. 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 Procedure Notes None recorded. Medical Equipment None Reported. Allergies Allergen ID Allergen Name Allergen Category Reaction Reaction Severity Criticality Documentation Date Start Date Code Code System Note Provider Name and Address Organization Details Recorded Time 954566 sulfur medicatio n hives severe Not available 06/12/2023 12783 RxNorm Arin Pullum, PATENT LEATHER SORTER alana [address] 3 10:29:16 Medications Name Sig Start Date Stop Date Status Note LastModified by Organization Details LastModified Time Celexa 20 mg tablet Take 1 tablet every day by oral route at bedtime. active Not Available Not Available No t Available Abilify 15 mg tablet Take 1 tablet every day by oral route at bedtime. active Not Available Not Available No t Available Iron (ferrous sulfate) active Not Available Not Available Not Available active Not Available Not Avai lable Not Available Alaway 0.025 % (0.035 %) eye drops INSTILL 1 DROP INTO AFFECTED EYE(S) BY OPHTHALMIC ROUTE 2 TIMES PER DAY active Not Available Not Available No t Available Flonase Allergy Relief 50 mcg/actuat ion nasal spray,susp ension [place] 1 spray twice a day by intranasal route. active Not Available Not Available No t Available Vitals Date Recorded Respiratory rate Body weight Body temperature Heart rate Oxygen saturation Oxygen saturation in Arterial blood by Pulse oximetry Body mass index (BMI) Body mass index (BMI) [Percentile] Per age and sex Body height Systolic And Diastolic Provider Name and Address Organization Details Last Updated DateTime 3 18 /min 99476.8 3 g 98.1 [degF] 78 /min 100 % 100 % 22.7 kg/m2 63 % 154.94 cm 108/60 mm[Hg] Arin Molina LPN [facility] [place] 3 10:42:15 Social History Question Answer Notes LastModified by [employer] Details LastModified Time Tobacco Smoking Status Never Smoker Arin Molina LPN [facility], [place] - [facility] [place] 06/12/2023 10:44:58 What Was The Date Of Your Most Recent Tobacco Screening? 06/12/2023 Information not available 06/12/2023 Has Tobacco Cessation Counseling Been Provided? Yes Information not available 06/12/2023 On What Date Was Tobacco Cessation Counseling Provided? 06/12/2023 Information not available 06/12/2023 Sex: Unknown Functional Status Question Answer Note LastModified by [employer] Details LastModified Time Do you use any illicit or recreational drugs? No Information not available 06/12/2023 Do you or have you ever used any other forms of tobacco or nicotine? Yes Information not available 06/12/2023 Do you or have you ever used e-cigarettes or vape? Current user of electronic cigarettes Information not available 06/12/2023 Mental Status None recorded. Family History Nothing Reported. Medical History No medical history recorded. Gynecological HistoryNo gynecological history recorded. Obstetrics History GPAL:G 0 P 0 0 0 0 Past Encounters Encounter ID Performer Location Encounter Start Date Encounter Closed Date Diagnosis/Indication Diagnosis SNOMED-CT Code Diagnosis ICD10 Code Diagnosis Note [id number] Amanuel Blum MD [facility] [address] [place] [address] 06/12/2023 09:49:54 06/12/2023 11:51:36 Fertility problem 06694834 N97.9 Health Concerns Section Related Observation LastModified by Organization Detai ls LastModified Time None Recorded Concern Status LastModified by Organization Details LastModified Time None Recorded Advance Directives Directive None Recorded Payers Insurance Date Sequence Insurance Name Policy Number Policy Tobin Covered Member ID Tobin Member ID Guarantor Name 06/12/2023 3 [facility] [place] Maya Villalobos e [id number] Maya myers 10/25/[address] [facility] (MEDICAID HMO) Maya Reynolds-Memo e [id number] Maya Reynolds-Jeffrey myers 06/11/2023 1 [facility] Maya Reynolds-Memo e [id number] Maya Reynolds-Jeffrey myers 06/12/2023 2 [facility] (MEDICAID HMO) Maya Villalobos e [id number] Maya Reynolds-Hen lucia 10/25/2023 1 [place] [id number] Maya Reynolds-Memo e [id number] Maya Quinonesam-Hen lucia 06/11/2023 1 [place] Maya Villalobos e [id number] Maya Reynolds-Hen ke Notes Date Note Type Note Provider Name and Address Organization Details Recorded Time 06/12/2023 text/html 17 y/o white female here today as a new patient. She would like to discuss if she is fertile. She has a period monthly. Has a psych in [place], [place]. She says she takes the abilify and celexa for depression. She states she is anemic and this is why she takes the with iron vitamin daily. She has been trying to get for 6 months. SHARONDA VELASQUEZ, SUDHA [address] [facility], [place], [address], [place] - [facility] [place] 06/12/2023 11:19:01 OBGyn Episode No OBEpisode recorded.
--- OUTSIDE RECORDS SUMMARY | 2025-05-07 19:53 | XMS_ITS | Patient Health Record ---
Author Organization [facility] Address [address] [place] [address] Care Team Providers Care Office Asst Name Role Phone Seamus Crow Primary Care Provider Allergies Allergen (clinical drug ingredient) Drug/Non Drug Allergy documented on EMR Reaction Allergy Type Onset Date Status Substance with sulfonamide structure and antibacterial mechanism of action (substance) Sulfa Antibiotics hives Drug Allergy Active Reason For Referral No Information Medications Medication SIG (Take, Route, Frequency, Duration) Notes Start Date End Date Status Abilify 10 MG Tablet 1 tablet Orally Once a day Active CeleXA 20 MG Tablet 1 tablet Orally Once a day Active Cetirizine HCl 10 MG Tablet 1 tablet Orally Once a day A ctive Topamax 25 MG Tablet 1 tablet Orally Once a day Active Social History Sex Assigned At : Social History Observation Description Sex Assigned At Female Plan Of Treatment No Information Insurance Providers Payer Name Payer Address Payer Phone Subscriber Number Group Number Insured Name Patient Relationship to Insured Coverage Start Date Coverage End Date [facility] [employer] [address] [address] [place] [address] [phone] [id number] Maya Cordova Self - patient is the insured
--- NOTE | 2025-05-07 20:51 | USR_ITS ---
PROCEDURE INFORMATION: Exam: US First Trimester, Transabdominal and US , Transvaginal Exam date and time: 05/07/2025 9:35 PM Age: 19 years old Clinical indication: complicated by abdominal or pelvic pain; Generalized abdominal pain; First trimester (<14 weeks 0 days); Gestational age or lmp: 9w 2d by reported lmp; ; Additional info: Abd pain LABS AND CLINICAL REPORTS: Last menstrual period start date: 03/03/2025 Gestational age (Established): 9 w 2 d Estimated due date (Established): 12/08/2025 TECHNIQUE: Imaging protocol: Real-time transabdominal obstetrical ultrasound of the maternal pelvis and a first trimester , less than 14 weeks 0 days, with image documentation. Transvaginal imaging was used for better evaluation of the fetus, adnexa, and/or cervix. COMPARISON: US OB <= 14 weeks fetus [id number] 04/29/2025 8:49 AM FINDINGS: GESTATION: Gestation: Intrauterine gestation is visualized. pole is visualized. Yolk sac is visualized. Embryo/ cardiac activity (BPM): 152 bpm Extra-embryonic membranes/Placenta: Unremarkable. No subchorionic bleed. Amniotic/Chorionic fluid: Amniotic and extra-amniotic fluid are normal for gestational age. BIOMETRY: Gestational age (AUA): 9 w 1 d Estimated due date (AUA): 12/09/2025 MATERNAL: Uterus: Uterus measures 9.2 cm x 7.03 cm x 6.44 cm. Cervix: Unremarkable. Endocervical canal is closed. Right ovary/adnexa: Right ovary measures 3.2 cm x 1.9 cm x 3.3 cm. Right ovarian volume is 10.7 mL. No Doppler analysis of the right ovary was performed. Left ovary/adnexa: Left ovary measures 3.7 cm x 2.4 cm x 3.7 cm. Left ovarian volume is 17 mL. Arterial and venous blood flow noted in the left ovary. Intraperitoneal space: No intraperitoneal free fluid. US/US OB <= 14 weeks fetus [id number] IMPRESSION: Single viable intrauterine corresponding to 9 weeks, 1 day.
[2025-05-07 21:00] VITALS: PULSE 81; O2SAT 100
[2025-05-07 21:16] LABS: Hematocrit 35.6 % (36-47); Hemoglobin 12.20 g/dL (12.4-14.8); Mean Corpuscular HGB Conc 34.3 g/dL (30-55); Mean Corpuscular Hemoglobin 30.2 pg (27-33); Mean Corpuscular Volume 88.1 fl (85-98); Nucleated Red Blood Cells % 0 %; Platelet Count 321 10^3/cmm (157-399); Red Blood Count 4.04 10^6/uL (3.85-5.65); White Blood Count 10.86 10^3/uL (4.5-13.0)
[2025-05-07 21:18] LABS: Glucose Urine UA Negative (Normal); Nitrate Urine Negative (Negative); Specific Gravity, Urine 1.019 (1.005-1.030)
[2025-05-07 21:23] LABS: Add Urine Microscopic? YES
[2025-05-07 21:27] LABS: HCG, Serum Qual Positive (Negative)
[2025-05-07 21:30] VITALS: BP 120/63; PULSE 75; O2SAT 95
[2025-05-07 21:32] LABS: Alanine Aminotransferase 19 U/L (0-33); Albumin Level 4.1 g/dL (3.5-5.2); Alkaline Phosphatase 47 U/L (35-105); Anion Gap 14.5 (5-19); Aspartate Amino Transferase 14 U/L (0-32); Blood Urea Nitrogen 11 mg/dL (6-20); Calcium 8.9 mg/dL (8.5-10.5); Carbon Dioxide 22 mmol/L (22-29); Chloride 102 mmol/L (98-107); Creatinine Clr Calc Pharmacy 135.2373; Globulin 2.6 g/dL (1.3-4.6); Glucose 73 mg/dL (65-115); Osmolality Calculated 278 mOsm/kg (285-295); Potassium 3.5 mmol/L (3.5-5.1); Sodium 135 mmol/L (136-145); Total Protein 6.7 g/dL (6.6-8.7)
[2025-05-07 22:00] VITALS: BP 106/99; PULSE 83; O2SAT 100
--- NOTE | 2025-05-07 22:33 | ED_ITS ---
HPI - Abdominal Pain 2 General: Chief Complaint: Abdominal Pain Stated Complaint: severe cramping 8wks preg Time Seen by Provider: 05/07/25 20:51 History of Present Illness: Patient is a 19-year-old G3, P1011, presents to the ED with left lower quadrant pain and indigestion. She states it started cramping this morning and has worsened over the course the day. Denies any nausea, or vomiting. LMP 03/03/25. No spotting/bleeding from the vagina. No recent intercourse. Associated Symptoms: Reports nausea; Denies chills, fever(s) and vomiting Related Data Home Medications ?Medication ?Instructions ?Recorded ?Confirmed albuterol sulfate 90 mcg/actuation 2 puff inhalation Q 4H PRN 02/07/22 04/27/25 aerosol inhaler (ProAir HFA) Shortness Of Breath ibuprofen 800 mg tablet 800 mg PO ONCE PRN 08/13/24 04/27/25 Previous Rx's ?Medication ?Instructions ?Recorded metoclopramide HCl 5 mg tablet 5 mg PO DAILY #30 tabs 04/29/25 (Reglan) mv-mn no.97-folic 180 mcg-dha 25 1 tab PO DAILY #30 ta bs 04/29/25 mg-herb no.293 25 mg chewable tablet (Alive Daily Support ) Allergies Allergy/AdvReac Type Severity Reaction Status Date / Time Sulfa (Sulfonamide Allergy ALGY-Hives Verified 04/27/25 11:21 Antibiotics) Review of Systems 2 General: Reports: 10 or more systems reviewed and unremarkable except in HPI and below Const: Denies: fever(s) or chills Eyes: Denies: change in vision or blurry vision ENMT: Denies: throat pain or uvular edema Card: Denies: chest pain, palpitations or swelling of feet/ankles Resp: Denies: dyspnea or productive cough GI: Reports: abdominal pain and nausea; Denies: vomiting : Denies: flank pain or difficulty voiding Musc: Denies: neck pain, back pain or extremity pain Skin/Breast: Denies: rash or pruritus Neuro: Denies: headache(s) or numbness in extremities Psych: Denies: anxiety or depression PFSH ED 2 PFSH: Medical History (Updated 05/07/25 @ 23:23 by KASHIF Harmon) Vaginal delivery Active labor at term Vapes nicotine containing substance Migraine without aura Anxiety and depression No pertinent past medical history neghx: htn,dm,thyroid,dvt/pe PCP: [facility] Allergic rhinitis due to allergen Psychiatric care Surgical History History of tonsillectomy and adenoidectomy as a child History of placement of ear tubes as a child Family History Grandfather Diabetes Maternal Hypertension Maternal Denies family history of Colon cancer Ovarian cancer Heart disease Hypercholesteremia Breast cancer Uterine cancer Thyroid disease Stroke Social History Smoking and tobacco/nicotine status: never used tobacco/nicotine Physical Exam 2 Const: COMMON NORMALS: no acute distress, average body habitus and patient oriented x3 HENMT: COMMON NORMALS: normocephalic and atraumatic HEAD & SCALP: n ormocephalic and atraumatic THROAT: no uvular edema Neck/C-Spine: COMMON NORMALS: full ROM and no lymphadenopathy Chest: COMMONS NORMALS: normal inspection of the chest and normal palpation of entire chest wall Resp: COMMON NORMALS: normal respiratory effort and No retractions Cardio: COMMON NORMALS: regular rate and regular rhythm RATE: regular rate RHYTHM: regular rhythm GI: COMMON NORMALS: Normal to inspection, nondistended, normoactive bowel sounds present, Soft to palpation and non-tender PALPATION: Yes Soft to palpation : COMMON NORMALS: Yes no CVA tenderness BLADDER/KIDNEY EXAM: Yes no CVA tenderness Back/Pelvis: COMMON NORMALS: no CVA tenderness Extremity: COMMON NORMALS: normal to inspection, full ROM and capillary refill normal Neuro: COMMON NORMALS: patient oriented x3 Psych: COMMON NORMALS: mental status grossly normal and Normal thought process present THOUGHT PROCESS: Normal thought process present Course 2 Vital Signs: Vital signs: Vital Signs Temperature 97.6 F 05/07/25 19:47 Pulse Rate 95 05/07/25 23:29 Respiratory Rate 16 05/07/25 19:47 Blood Pressure 110/53 05/07/25 23:29 Pulse Oximetry 99 05/07/25 23:29 Oxygen Delivery Me thod Room Air 05/07/25 21:00 MDM - Abdominal Pain Medical Decision Making Patient is a 19-year-old female 9 weeks , last menstrual period 03/03/2025, with left lower quadrant pain. Suspect this is secondary to obstipation after exam, and workup. No concern of despise at this time. Patient is O-, however RhoGAM not given because there is no concern of demise, no bleeding, and cannot elicit tenderness on exam. Lab Data 05/07/25 21:06 05/07/25 21:06 Labs/Radiology: Radiology Impressions Ultrasound 05/07/25 20:51 IMPRESSION: Single viable intrauterine corresponding to 9 weeks, 1 day. Laboratory Results WBC 10.86 10^3/uL (4.5-13.0) 05/07/25 21:06 RBC 4.04 10^6/uL (3.85-5.65) 05/07/25 21:06 Hgb 12.20 g/dL (12.4-14.8) L 05/07/25 21:06 Hct 35.6 % (36-47) L 05/07/25 21:06 MCV 88.1 fl (85-98) 05/07/25 21:06 MCH 30.2 pg (27-33) 05/07/25 21:06 MCHC 34.3 g/dL (30-55) 05/07/25 21:06 RDW 11.8 % (12.1-15.1) L 05/07/25 21:06 Plt Count 321 10^3/cmm (157-399) 05/07/25 21:06 MPV 9.2 fL (7.4-10.4) 05/07/25 21:06 Neut % (Auto) 65.0 % 05/07/25 21:06 Lymph % (Auto) 26.2 % 05/07/25 21:06 [place] % (Auto) 6.7 % 05/07/25 21:06 Eos % (Auto) 1.2 % 05/07/25 21:06 Baso % (Auto) 0.5 % 05/07/25 21:06 Neut # (Auto) 7.07 10^3/uL (1.8-8.0) 05/07/25 21:06 Lymph # (Auto) 2.8 10^3/uL (1.5-6.5) 05/07/25 21:06 [place] # (Auto) 0.7 10^3/uL (0.2-0.9) 05/07/25 21:06 Eos # (Auto) 0.1 10^3/uL (0.0-0.8) 05/07/25 21:06 Baso # (Auto) 0.1 10^3/uL (0.0-0.1) 05/07/25 21:06 Nucleated RBC % (auto) 0 % 05/07/25 21:06 Nucleated RBCs # 0.0 /100WBC 05/07/25 21:06 Sodium 135 mmol/L (136-145) L 05/07/25 21:06 Potassium 3.5 mmol/L (3.5-5.1) 05/07/25 21:06 Chloride 102 mmol/L (98-107) 05/07/25 21:06 Carbon Dioxide 22 mmol/L (22-29) 05/07/25 21:06 Anion Gap 14.5 (5-19) 05/07/25 21:06 BUN 11 mg/dL (6-20) 05/07/25 21:06 Creatinine 0.5 mg/dL (0.5-0.9) 05/07/25 21:06 GFR Calculation 157.3 mL/min (90-130) H 05/07/25 21:06 Glucose 73 mg/dL (65-115) 05/07/25 21:06 Calculated Osmolality 278 mOsm/kg (285-295) L 05/07/25 21:06 Calcium 8.9 mg/dL (8.5-10.5) 05/07/25 21:06 Total Bilirubin 0.2 mg/dL (0.15-1.2) 05/07/25 21:06 AST 14 U/L (0-32) 05/07/25 21:06 ALT 19 U/L (0-33) 05/07/25 21:06 Alkaline Phosphatase 47 U/L (35-105) 05/07/25 21:06 Total Protein 6.7 g/dL (6.6-8.7) 05/07/25 21:06 Albumin 4.1 g/dL (3.5-5.2) 05/07/25 21:06 Globulin 2.6 g/dL (1.3-4.6) 05/07/25 21:06 HCG, Qual Positive (Negative) H 05/07/25 21:06 Ser , Semi-Qnt 341802.00 mIU/mL 05/07/25 21:06 Urine Color Yellow (Yellow) 05/07/25 20:07 Urine Appearance Clear (CLEAR) 05/07/25 20:07 Urine pH 6.5 (5-7) 05/07/25 20:07 Ur Specific [place] 1.019 (1.005-1.030) 05/07/25 20:07 Urine Protein Trace (Negative) A 05/07/25 20:07 Urine Glucose (UA) Negative (Normal) 05/07/25 20:07 Urine Ketones Negative (Negative) 05/07/25 20:07 Urine Blood Negative (Negative) 05/07/25 20:07 Urine Nitrate Negative (Negative) 05/07/25 20:07 Urine Bilirubin Negative (Negative) 05/07/25 20:07 Urine Urobilinogen 1.0 mg/dL (Negative) 05/07/25 20:07 Ur Leukocyte Esterase Negative (Negative) 05/07/25 20:07 Urine RBC 0-2 /hpf (0-2) 05/07/25 20:07 Urine WBC 0-5 /hpf (0-5) 05/07/25 20:07 Ur Squamous Epith Cells 6-10 /hpf (0-5) 05/07/25 20:07 Amorphous Sediment Not Reportable 05/07/25 20:07 Urine Bacteria None seen /hpf (NONE) 05/07/25 20:07 Hyaline Casts 1.65 /lpf 05/07/25 20:07 Blood Type O Negative 05/07/25 21:06 Rho(D) Type Rh negative 05/07/25 21:06 Antibody Screen Negative 05/07/25 21:06 All radiology interpretation(s) finalized by discharge Discharge Plan Discharge Patient Disposition: Home Clinical Impression: Abdominal pain, LLQ, Obstipation Condition: Stable Prescriptions: No Action ibuprofen 800 mg tablet 800 mg PO ONCE PRN metoclopramide HCl [Reglan] 5 mg tablet 5 mg PO DAILY Qty: 30 3RF Alive Daily Support 180 mcg-25 mg- 25 mg tablet,chewable 1 tab PO DAILY Qty: 30 4RF albuterol sulfate [ProAir HFA] 90 mcg/actuation HFA aerosol inhaler 2 puff INHALATION Q4H PRN (Reason: Shortness Of Breath) Discharge Orders: Discharge ED (Routine); Ordered 05/07/25 Ordered By: Noreen Hutson Referrals: Natalie Boudreaux DO [Primary Care Provider, DIRECTOR [employer]LO[employer] SALES] Discharge Diet: Usual diet Discharge Activity: Increase activity as tolerated Patient Instructions: Constipation (ED), Patient Portal & Niurka Instructions Activity Restrictions/Additional Instructions: Pelvic rest/no sex/no tampons/nothing in vagina/no heavy lifting over 1/2 gallon of milk Call your OB doctor in the a.m. to see your OB doctor. You will need to repeat your hCG level tomorrow with your OB doctor. Set alarm to call in a.m. Laxative of choice. As discussed take 2 senna S tonight?obtain ebjl-cun-bvsohrh versus milk of magnesia. Start a daily probiotic. Return to ED for worsening pain as we discussed Increase fluid intake Print Language: Slovak Coding Level of Care Code ED Firer Electric Locomotive for Hollie Magdaleno
[2025-05-07 23:29] VITALS: BP 110/53; PULSE 95; O2SAT 99
== END 2025-05-07 23:30 | disposition home or self-care (01) ==
PROVIDERS: Emergency Provider Physician Assistant; PCP Family Medicine
DX: R10.32 Left lower quadrant pain (principal); K59.00 Constipation, unspecified
CPT/HCPCS: 36415; 76801; 80053; 81001; 84702; 84703; 85025; 86850; 86900; 99284

== ENCOUNTER → 2025-05-14 13:20 | Outpatient (BNVA) | payer MEDICAID, SELFPAY | PROVIDERS: PCP Family Medicine; Visit Provider Nurse Practitioner Women's Health | DX: Z34.90 Encounter for supervision of normal pregnancy, unspecified, unspecified trimester (principal) | CPT/HCPCS: 80307; 84315; 84443; 86592; 86762; 86803; 87086; 87340; 87491; 87591; 87661; 87806 ==

== ENCOUNTER → 2025-05-28 10:28 | Outpatient (BNVA) | payer MEDICAID, SELFPAY | PROVIDERS: PCP Family Medicine; Visit Provider Obstetrics & Gynecology | DX: Z34.90 Encounter for supervision of normal pregnancy, unspecified, unspecified trimester (principal) | CPT/HCPCS: 84315 ==

== ENCOUNTER → 2025-06-24 13:15 | Outpatient (BNVA) | payer MEDICAID, SELFPAY | PROVIDERS: PCP Family Medicine; Visit Provider Nurse Practitioner Women's Health | DX: Z34.82 Encounter for supervision of other normal pregnancy, second trimester (principal) | CPT/HCPCS: 84315 ==

== ENCOUNTER 2025-07-02 19:24 | Emergency (ER) | payer OTHER, MEDICAID, SELFPAY ==
[2025-07-02 19:28] VITALS: BP 95/61; PULSE 87; RESP 16; TEMP 36.7; O2SAT 100; BMI 19.9
--- OUTSIDE RECORDS SUMMARY | 2025-07-02 19:29 | XMS_ITS | Clinical Summary ---
Author Organization [facility] Address [address] [place]n: [place] [address] Care Team Providers Care Local Government Legislator Name Role Phone Unavailable Primary Care Provider Unavailabl e Allergies Active Allergy Reactions Criticality Noted Date Comments Sulfa (Sulfonamide Antibiotics) Hives High 09/29 Sulfur Rash Medium 12/05/2015 Medications ketotifen (Alaway) 0.025% solutionIndication s:Allergic conjunctivitis of both eyes Administer 1 Drop in both eyes 2 times daily. 15 mL 11 3 Active fluticasone propionate (FLONASE) 50 mcg/spray [place], Suspension nasal inhaler Administer 1 [place] in each nostril 2 times daily. 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 Pulse 96 11/28/2023 1:02 PM 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 Temperature 36.6 C (97.9 F) 11/28/2023 1:02 PM 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 Respiratory Rate 18 09/18/2023 1:00 AM 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 Oxygen Saturation 98% 11/28/2023 1:02 PM 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 Inhaled Oxygen Concentration - - Weight 54.5 kg (120 lb 3.2 oz) 11/28/2023 1:02 P M 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 Height 154.9 cm (5' 1 ) 11/28/2023 1:02 PM 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 The modifications have not been cleared or approved by the FDA. This assay has been validated pursuant to the CLIA regulations and is used for clinical purposes. For additional information, please refer to https://education.FAB BAG/faq/TLY254 (This link is being provided for information/ educational purposes only.) Test Performed at: [facility] [id number] [id number] Katie Raines MD Urine (Urine, 1st catch) 04/25/2023 2:01 PM CDT 04/26/2023 6:48 AM CDT Jackelyn Narvaez NP MICROBIOLOGY - GENERAL ORDERABL ES Final Result [facility] [phone] [place] [address] [place] [address] from Last 3 Months or Most Recently Relevant to Health Maintenance Insurance [employer] [facility] [employer] Member Subscriber Plan / Payer (Ef fective 2022-Present) Name:Josefina Fullerevita Lew Relation to Subscriber:Self Name:StacietracyMaya rodriguez Payer ID:Not on file Group ID:Not on file Type:Vision Address: [address] OPEN ACCESS HMO
--- OUTSIDE RECORDS SUMMARY | 2025-07-02 19:29 | XMS_ITS | Patient Health Record ---
Author Organization [facility] Address [address] [place] [address] Care Team Providers Care Podiatric Aide Name Role Phone Seamus Crow Primary Care Provider [phone] Allergies Allergen (clinical drug ingredient) Drug/Non Drug [...] Insured Coverage Start Date Coverage End Date [facility] [employer] [address] [address] [place] [phone] [id number] Maya Cordova Self - patient is the insured
[2025-07-02 19:51] LABS: Glucose Urine UA Negative (Normal); Nitrate Urine Negative (Negative); Specific Gravity, Urine 1.010 (1.005-1.030)
--- NOTE | 2025-07-02 19:55 | W.ED.BACK ---
HPI - Back Pain/Injury General: Chief Complaint: Back Pain/Injury Stated Complaint: back pain Time Seen by Provider: 07/02/25 19:26 History of Present Illness: 19-year-old female at approximately 17 weeks gestation presents to the emergency room complaining of back pain. She does not recall anything she did that seem to precipitated she has had problems with back pain in the past. She has no pain radiating to her legs. She states she gets uncomfortable when she lays down and with sitting with changing position. She has no difficulty with emptying her bladder. She has no fecal incontinence. No numbness tingling into the lower extremities. Associated symptoms: Deny abdominal pain, chills, dysuria, fever(s) or urinary urgency Related Data Home Medications ?Medication ?Instructions ?Recorded ?Confirmed albuterol sulfate 90 mcg/actuation 2 puff inhalation Q4H PRN 02/07/22 06/24/25 aerosol inhaler (ProAir HFA) Shortness Of Breath ibuprofen 800 mg tablet 800 mg PO ONCE PRN 08/13/24 06/24/25 Previous Rx's ?Medication ?Instructions ?Recorded metoclopramide HCl 5 mg tablet 5 mg PO DAILY #30 tabs 04/29/25 (Reglan) escitalopram oxalate 10 mg tablet 10 mg PO DAILY #90 tabs 05/14/25 (Lexapro) vitamins no.180-ferrous 1 tab PO DAILY #90 tabs 05/14/25 fumarate 27 mg-folic acid 1 mg tablet ( Plus Vitamin-Mineral) cyclobenzaprine 5 mg tablet 5 mg PO TID PRN muscle spasm #20 07/02/25 tabs methylprednisolone 4 mg tablets in See Rx Instructions PO .COMPLEX 07/02/25 a dose pack (Medrol (Matthieu)) #21 ea Allergies Allergy/AdvReac Type Severity Reaction Status Date / Time Sulfa (Sulfonamide Allergy ALGY-Hives Verified 06/24/25 11:59 Antibiotics) Review of Systems Const: Denies: fever(s) or chills Card: Denies: chest pain Resp: Denies: dyspnea GI: Denies: abdominal pain : Denies: dysuria, urinary frequency or urinary urgency Musc: Denies: neck pain or back pain Skin/Breast: Denies: rash PFSH ED PFSH: Medical History (Updated 07/02/25 @ 20:04 by Margarito Harding DO) Miscarriage Vaginal delivery Active labor at term Vapes nicotine containing substance Migraine without aura Anxiety and depression No pertinent past medical history neghx: htn,dm,thyroid,dvt/pe PCP: [facility] Allergic rhinitis due to allergen Surgical History [place] teeth extracted History of tonsillectomy and adenoidectomy as a child History of placement of ear tubes as a child Family History Grandfather Diabetes Maternal Hypertension Maternal Denies family history of Colon cancer Ovarian cancer Heart disease Hypercholesteremia Breast cancer Uterine cancer Thyroid disease Stroke Social History Smoking and tobacco/nicotine status: never used tobacco/nicotine Female Reproductive History: Date of last menstrual period: 03/03/25 Physical Exam Const: COMMON NORMALS: no acute distress GENERAL APPEARANCE: cooperative and comfortable ORIENTATION/CONSCIOUSNESS: Yes awake, Yes oriented to person, Yes oriented to place and Yes oriented to time HENMT: COMMON NORMALS: normocephalic, atraumatic and hearing grossly normal bilaterally HEAD & SCALP: normocephalic and atraumatic Resp: COMMON NORMALS: normal respiratory effort, No retractions, No use of accessory muscles and clear to auscultation bilaterally AUSCULTATION: clear to auscultation bilaterally Cardio: COMMON NORMALS: regular rate, regular rhythm and No murmurs present (Cardio) RATE: regular rate RHYTHM: regular rhythm Extremity: COMMON NORMALS: normal to inspection, capillary refill normal, no clubbing, cyanosis or edema, no calf tenderness and no pedal edema Neuro: SENSORIUM/ORIENTATION: Yes oriented to person, Yes oriented to place and Yes oriented to time Skin: COMMON NORMALS: no rashes or lesions noted GENERAL SKIN EXAM: no rashes or lesions noted Course Vital Signs: Vital signs: Vital Signs Temperature 98.1 F 07/02/25 19:28 Pulse Rate 87 07/02/25 19:28 Respiratory Rate 16 07/02/25 19:28 Blood Pressure 95/61 07/02/25 19:28 Pulse Oximetry 100 07/02/25 19:28 Oxygen Delivery Me thod Room Air 07/02/25 19:28 MDM - Back Pain/Injury Medical Decision Making Musculoskeletal low back pain. She has no red flag syndromes. She denies any vaginal bleeding or discharge no dysuria urgency or frequency her urine is normal. She is given Solu-Medrol here and discharged home with steroid taper Flexeril to use as needed follow-up with her primary [employer] or primary care doctor. Return if she has worsening or changes symptoms Medical Records I reviewed the patient's medical records. Labs I reviewed the patient's lab results. Laboratory Results Urine Color Yellow (Yellow) 07/02/25 19:39 Urine Appearance Clear (CLEAR) 07/02/25 19:39 Urine pH 6.5 (5-7) 07/02/25 19:39 Ur Specific [place] 1.010 (1.005-1.030) 07/02/25 19:39 Urine Protein Negative (Negative) 07/02/25 19:39 Urine Glucose (UA) Negative (Normal) 07/02/25 19:39 Urine Ketones Negative (Negative) 07/02/25 19:39 Urine Blood Negative (Negative) 07/02/25 19:39 Urine Nitrate Negative (Negative) 07/02/25 19:39 Urine Bilirubin Negative (Negative) 07/02/25 19:39 Urine Urobilinogen 0.2 mg/dL (Negative) 07/02/25 19:39 Ur Leukocyte Esterase Negative (Negative) 07/02/25 19:39 Urine RBC 0-2 /hpf (0-2) 07/02/25 19:39 Urine WBC 0-5 /hpf (0-5) 07/02/25 19:39 Ur Squamous Epith Cells 0-5 /hpf (0-5) 07/02/25 19:39 Amorphous Sediment Not Reportable 07/02/25 19:39 Urine Bacteria None seen /hpf (NONE) 07/02/25 19:39 Hyaline Casts 0-4 /lpf H 07/02/25 19:39 No radiology studies performed this visit Discharge Plan Discharge Patient Disposition: Home Clinical Impression: Strain of lumbar region Condition: Stable Prescriptions: New methylprednisolone [Medrol (Matthieu)] 4 mg tablets,dose pack See Rx Instructions .ROUTE .COMPLEX Qty: 21 0RF Rx Instructions: orally per package directions cyclobenzaprine 5 mg tablet 5 mg PO TID PRN (Reason: muscle spasm) Qty: 20 0RF No Action escitalopram oxalate [Lexapro] 10 mg tablet 10 mg PO DAILY Qty: 90 1RF Rx Instructions: take once daily Plus Vitamin-Mineral 27 mg iron- 1 mg tablet 1 tab PO DAILY Qty: 90 2RF Rx Instructions: take once daily ibuprofen 800 mg tablet 800 mg PO ONCE PRN metoclopramide HCl [Reglan] 5 mg tablet 5 mg PO DAILY Qty: 30 3RF albuterol sulfate [ProAir HFA] 90 mcg/actuation HFA aerosol inhaler 2 puff INHALATION Q4H PRN (Reason: Shortness Of Breath) Discharge Orders: Discharge ED (Routine); Ordered 07/02/25 Ordered By: Margarito Harding Referrals: Natalie Boudreaux DO [Primary Care Provider, [employer]] Patient Instructions: Opioid Safety, Pain Management, Patient Portal & [place] Instructions Activity Restrictions/Additional Instructions: Thank you for choosing [facility] for your healthcare needs today. It is very important that you follow up as instructed or that you return to the Emergency Department should you have concerns or if your condition changes or worsens in any way. Emergency department visits are focused on emergent conditions, in some cases you may require further evaluation on an outpatient basis. You were seen with complaints of low back pain. Your exam was unremarkable. UA was negative. Low back pain is musculoskeletal in nature recommend you do the steroid taper he can use cyclobenzaprine as needed. you can also use Tylenol [id number]. And follow-up with your primary care doctor or OB doctor if pain persist. (Please note that included in your discharge packet is information concerning opioid safety and pain management. This information is given to all patients were discharged from the ER regardless of their discharge diagnosis or the medicines they usually take or are prescribed.) Stand Alone Forms: Work/School Release Print Language: Spanish Coding Level of Care Code ED Hands And Dial Inspector for Hollie Magdaleno
[2025-07-02 19:56] LABS: Add Urine Microscopic? YES
[2025-07-02] MEDS: methylPREDNISolone sod succ 125 mg/2 mL INJ IVP (19:57)
== END 2025-07-02 20:46 | disposition home or self-care (01) ==
PROVIDERS: Emergency Provider Family Medicine; PCP Family Medicine
DX: S39.012A Strain of muscle, fascia and tendon of lower back, initial encounter (principal); X58.XXXA Exposure to other specified factors, initial encounter
CPT/HCPCS: 81001; 96374; 99284; J2919

== ENCOUNTER 2025-07-21 12:56 | Outpatient (CLI) | payer OTHER, MEDICAID, SELFPAY ==
--- NOTE | 2025-07-21 12:45 | USR_ITS ---
PROCEDURE INFORMATION: Exam: US After First Trimester, Transabdominal Exam date and time: 07/21/2025 1:03 PM Age: 20 years old Clinical indication: Screening exam; Routine US, uterus; Additional info: Z34.90 - encounter for supervision of normal , u. . . , LABS AND CLINICAL REPORTS: Last menstrual period start date: Unknown Gestational age (Established): 20 w 0 d Estimated due date (Established): 12/08/2025 TECHNIQUE: Imaging protocol: Real-time transabdominal obstetrical ultrasound of the maternal pelvis and a second or third trimester with image documentation. COMPARISON: US OB <= 14 weeks fetus [id number] 05/07/2025 9:35 PM FINDINGS: Gestation: Single live intrauterine gestation. heart rate: 151 bpm presentation and position: Cephalic. Placenta: Unremarkable. No subchorionic bleed. Placenta is anterior. Amniotic fluid (Qualitative): Amniotic fluid is normal for gestational age. ANATOMY: midline falx: Normal cerebellum: Normal lateral ventricles: Normal cisterna magna: Normal choroid plexus: Normal face: Upper lip is normal heart four-chamber view, heart size and position: Normal heart right ventricular outflow tract: Normal heart left ventricular outflow tract: Normal kidneys: Normal stomach: Normal urinary bladder: Obscured by position spine: Normal Umbilical cord and insertion: Normal upper limbs: Normal lower limbs: Normal external genitalia: Normal genitalia. BIOMETRY: Gestational age (AUA): 20 weeks 1 day, concordant with clinical dates Estimated due date (AUA): 12/07/2025 Estimated weight: 328.44 g. EFW by AC, BPD, FL, HC, [place]lock 1985, 47.6 percentile Biparietal diameter (BPD): 4.84 cm. EGA (BPD) is 20 w 4 d. 75.6 % percentile Head circumference (HC): 18.07 cm. EGA (HC) is 20 w 3 d. 65.1 % percentile Abdominal circumference (AC): 14.75 cm. EGA (AC) is 20 w 0 d. 45.3 % percentile Femur length (FL): 3.18 cm. EGA (FL) is 19 w 6 d. 38.2 % percentile HC/AC: 1.23. (Normal range: 1.07 - 1.25) FL/HC: 17.6. (Normal range: 16.67 - 19.87) FL/BPD: 65.7 FL/AC: 21.56 MATERNAL: Uterus: Unremarkable. Cervix: Unremarkable. Cervix is closed. Cervix 3.5 cm in length. Right ovary/adnexa: Obscured by lack of adequate acoustic window. Left ovary/adnexa: Obscured by lack of adequate acoustic window. Intraperitoneal space: No intraperitoneal free fluid. US/US OB >= 14 weeks fetus [id number] IMPRESSION: 1. Single live intrauterine with normal heart rate. 2. Estimated gestational age 20 weeks 1 day with estimated due date 12/07/2025. 3. Visualized anatomy within normal limits.
== END 2025-07-21 12:57 | disposition home or self-care (01) ==
LOC: RAD 12:57
PROVIDERS: PCP Family Medicine; Visit Provider Obstetrics & Gynecology
DX: Z34.92 Encounter for supervision of normal pregnancy, unspecified, second trimester (principal); Z3A.20 20 weeks gestation of pregnancy
CPT/HCPCS: 76805

== ENCOUNTER → 2025-07-30 16:16 | Outpatient (BNVA) | payer OTHER, MEDICAID, SELFPAY | PROVIDERS: PCP Family Medicine; Visit Provider Obstetrics & Gynecology | DX: O26.899 Other specified pregnancy related conditions, unspecified trimester (principal); Z67.91 Unspecified blood type, Rh negative | CPT/HCPCS: 84315 ==

== ENCOUNTER → 2025-08-19 12:57 | Outpatient (BNVA) | payer OTHER, MEDICAID, SELFPAY | PROVIDERS: PCP Family Medicine; Visit Provider Nurse Practitioner Women's Health | DX: Z34.90 Encounter for supervision of normal pregnancy, unspecified, unspecified trimester (principal) | CPT/HCPCS: 81000 ==

== ENCOUNTER 2025-09-03 13:51 | Outpatient (CLI) | payer OTHER, MEDICAID, SELFPAY ==
--- NOTE | 2025-09-03 13:45 | US_ITS ---
WS: [id number] ULTRASOUND BREAST LEFT TECHNIQUE: Ultrasound left breast focused area of concern. CLINICAL INFORMATION: N63.0 - Unspecified lump in unspecified breast COMPARISON: None. FINDINGS: Ultrasound LEFT breast area of concern. Incidental cyst at the 1 o'clock position 3 cm from the nipple measuring 5 x 6 mm. Incidental ductal ectasia with fibrocystic change. No suspicious abnormalities. No lesions to target for biopsy. US/US breast LT limited* [id number] IMPRESSION: BI-RADS 2 benign Recommend annual screening mammography age 40
== END 2025-09-03 13:52 | disposition home or self-care (01) ==
LOC: RAD 13:52
PROVIDERS: PCP Family Medicine; Visit Provider Nurse Practitioner Women's Health
DX: N63.21 Unspecified lump in the left breast, upper outer quadrant (principal); N60.42 Mammary duct ectasia of left breast
CPT/HCPCS: 76642

== ENCOUNTER → 2025-09-16 14:25 | Outpatient (BNVA) | payer OTHER, MEDICAID, SELFPAY | PROVIDERS: PCP Family Medicine; Visit Provider Obstetrics & Gynecology | DX: Z34.83 Encounter for supervision of other normal pregnancy, third trimester (principal); Z67.91 Unspecified blood type, Rh negative; Z3A.28 28 weeks gestation of pregnancy | CPT/HCPCS: 82950; 84315; 85025; 86850 ==

== ENCOUNTER → 2025-09-30 15:57 | Outpatient (BNVA) | payer OTHER, SELFPAY | PROVIDERS: PCP Family Medicine; Visit Provider Obstetrics & Gynecology | DX: O26.899 Other specified pregnancy related conditions, unspecified trimester (principal); Z67.91 Unspecified blood type, Rh negative | CPT/HCPCS: 84315 ==

== ENCOUNTER 2025-10-07 18:10 | Outpatient (CLI) | payer OTHER, SELFPAY ==
[2025-10-07 18:10] VITALS: BMI 21.5
[2025-10-07 18:24] VITALS: BP 108/53; PULSE 69
[2025-10-07 18:39] VITALS: BP 113/59; PULSE 66
[2025-10-07 18:53] VITALS: BP 113/58; PULSE 65
== END 2025-10-07 19:00 | disposition home or self-care (01) ==
LOC: OPOB 18:12 → OBGYN 18:13
PROVIDERS: PCP Family Medicine; Visit Provider Obstetrics & Gynecology
DX: O26.899 Other specified pregnancy related conditions, unspecified trimester (principal); Z3A.00 Weeks of gestation of pregnancy not specified; R10.9 Unspecified abdominal pain
CPT/HCPCS: 99211; J9999

== ENCOUNTER → 2025-10-15 15:29 | Outpatient (BNVA) | payer OTHER, SELFPAY | PROVIDERS: PCP Family Medicine; Visit Provider Obstetrics & Gynecology | DX: O26.899 Other specified pregnancy related conditions, unspecified trimester (principal); Z67.91 Unspecified blood type, Rh negative | CPT/HCPCS: 84315 ==

== ENCOUNTER → 2025-10-27 08:43 | Outpatient (BNVA) | payer OTHER, SELFPAY | PROVIDERS: PCP Family Medicine; Visit Provider Obstetrics & Gynecology | DX: Z34.93 Encounter for supervision of normal pregnancy, unspecified, third trimester (principal); Z3A.34 34 weeks gestation of pregnancy | CPT/HCPCS: 84315 ==